=== PATIENT | female | born 1970 | race Caucasian/White ===

== ENCOUNTER 2017-06-20 10:46 | Inpatient (IN) | payer OTHER ==
[~2017-06-20] VITALS: Ht 175.3 cm; Wt 121.0 kg
[2017-06-20] VITALS (7 sets, daily range): BP systolic 164; BP diastolic 82; PULSE 74–94; TEMP 36.7; O2SAT 94–97; Ht 175.3 cm; Wt 121.0 kg
[~2017-06-20 10:46] MED LIST: ACET-1256 PO; ALBUAER2 INH; ATV/1 PO; BUSP15TA70 PO; FLUO20CA35 PO; FORM12CA2 INH; LPT10 PO; NCDT21 TD; NRV5 PO; OXGN; PRED5PAK3 PO; TIOTCAP INH; TOPI50TA16 PO; VST10 PO
[2017-06-20] MEDS ORDERED: ALBUT/IPRATROP 3MG/0.5MG NEB 3 ML VIAL INH STA ×2 (11:28→12:13)
[2017-06-20 11:48] LABS: BASO % 0.2 %; BASO ABS # 0.02 K/uL (0-0.2); COMPLETE YES; EOS % 0.6 %; HEMATOCRIT 49.9 % (37-47); IG% 2.1 %; LYMPH ABS # 4.48 K/uL (1.2-3.4); MEAN CELL VOLUME 87.7 fL (80-100); MEAN CORPUSCULAR HEMOGLOBIN 27.6 pg (25-34); MEAN CORPUSCULAR HGB CONC 31.5 g/dl (32-36); MONO % 8.8 %; NEUT % 54.3 %; PLATELET COUNT 283 K/uL (130-400); RED BLOOD COUNT 5.69 M/uL (4.2-5.4); WHITE BLOOD COUNT 13.16 K/uL (4.8-10.8)
[2017-06-20 11:57] LABS: POINT OF CARE TROPONIN I < 0.030 ng/ml (0-0.045)
[2017-06-20 11:59] LABS: INR 0.9 (0.9-1.1); PARTIAL THROMBOPLASTIN RATIO 0.9; PROTHROMBIN TIME (PATIENT) 10.1 SECONDS (9.0-12.0)
--- NOTE | 2017-06-20 12:01 | DIAGNOSTIC IMAGING REPORT ---
CHEST ONE VIEW PORTABLE HISTORY: Dyspnea COMPARISON: Chest 04/08/2015. FINDINGS: No pleural effusions. No pneumothorax. The heart is normal in size. No focal lung consolidations to suggest pneumonia. No evidence for pulmonary edema. Possible 6 mm nodular density within the left upper lobe. IMPRESSION: No acute process within the chest. Possible 6 mm nodular density within the left upper lobe. Follow-up nonemergent PA and lateral views of the chest are recommended for further evaluation to exclude overlapping soft tissues. Electronically signed by: Hipolito Robertson M.D. 06/20/2017 12:00 PM Dictated Date/Time: 06/20/2017 11:56 AM
[2017-06-20 12:05] LABS: BUN/CREATININE RATIO 19.1 (10-20); CALCIUM 8.7 mg/dl (8.5-10.1); CREATININE 0.91 mg/dl (0.60-1.20); MAGNESIUM 2.4 mg/dl (1.8-2.4); POTASSIUM 3.7 mmol/L (3.5-5.1)
[2017-06-20 12:15] LABS: ALB/GLOB RATIO 0.9 (0.9-2); CKMB/CK RATIO 2.4 (0-3.0); THYROID STIMULATING HORMONE 0.864 uIu/ml (0.300-4.500)
[2017-06-20] MEDS ORDERED: METHYLPREDNISOLONE 125 MG VIAL IV STA (12:37)
[2017-06-20] MEDS ORDERED: MOME100A INH (12:47)
[2017-06-20] MEDS ORDERED: BSP/10 PO (12:47)
[2017-06-20] MEDS ORDERED: ATOR10TA88 PO (12:47)
[2017-06-20] MEDS ORDERED: BENZ100C84 PO (12:47)
[2017-06-20] MEDS ORDERED: AZIT250T PO (12:47)
[2017-06-20] MEDS ORDERED: FLUO20CA34 PO (12:47)
[2017-06-20] MEDS ORDERED: ENAL1TAB31 PO (12:47)
[2017-06-20] MEDS ORDERED: PRED10TA PO (12:47)
[2017-06-20] MEDS ORDERED: PRVIN525X INH (12:47)
[2017-06-20] MEDS ORDERED: SPRIN/30 INH (12:47)
[2017-06-20] MEDS ORDERED: TOPI50TA16 PO (12:47)
[2017-06-20] MEDS ORDERED: LORA-741 PO (12:47)
[2017-06-20] MEDS ORDERED: CLR10 PO (12:47)
[2017-06-20] MEDS ORDERED: AMLO-110 PO (12:47)
[2017-06-20] MEDS ORDERED: CLON1TAB3 PO (12:47)
[2017-06-20] MEDS ORDERED: GUAI1TAB75 PO (12:47)
[2017-06-20] MEDS ORDERED: IPRASOL4 INH (12:47)
[2017-06-20] MEDS ORDERED: ALBU18002 INH (12:47)
[2017-06-20] MEDS ORDERED: LEVO1TAB34 PO (12:47)
--- NOTE | 2017-06-20 13:05 | EMERGENCY ROOM VISIT NOTE ---
History First contact with patient: 10:57 Chief Complaint: OTHER COMPLAINT Stated Complaint: COPD History of Present Illness The patient is a 47 year old female who presents to the Emergency Room via private vehicle with complaints of "COPD". The patient states that she had a COPD flare, and was recently hospitalized at [facility]. She states that she was hospitalized there between this past until yesterday. She states that she was discharged home and was feeling better. She was sent home with antibiotic, but has not yet begun this. She states that she worsened today, in regard to her shortness of breath as well as her chest pain. She states that this is the worst she is felt from her COPD. She currently still smokes. She has not had any medications for the COPD yet today. She denies any history of blood clots. This episode of symptoms began last Monday. They began with symptoms of upper respiratory tract infection similar to the common cold, of which she normally calls her PA Bang who normally prescribes a steroid and antibiotic, however she neglected to do so this time and notes that she had worsening of her symptoms. Review of Systems A complete 10-point Review of Systems was discussed with the patient, with pertinent positives and negatives listed in the History of Present Illness. All remaining Review of Systems questions can be considered negative unless otherwise specified. Past Medical/Surgical History Medical Problems: (1) Acute respiratory failure with hypoxia and hypercapnia Social History Smoking Status: Current Every Day Smoker Drug Use: none Marital Status: single, Occupation Status: other Current/Historical Medications Scheduled Amlodipine (Norvasc), 5 MG PO DAILY Atorvastatin (Lipitor), 10 MG PO DAILY Azithromycin (Zithromax), 500 MG PO DAILY Buspirone HCl (Buspirone HCl), 10 MG PO BID Enalapril Maleate (Vasotec), 20 MG PO DAILY Fluoxetine Hcl (Prozac), 60 MG PO DAILY Guaifenesin La (Guaifenesin Er), 1,200 MG PO Q12H Levofloxacin (Levaquin), 500 MG PO DAILY Loratadine (Claritin), 10 MG PO DAILY Mometasone Furoate-Formoterol (Dulera 100/5 Mcg), 1 AER INH DAILY Prednisone (Prednisone), 10 MG PO UD Tiotropium [place] (Spiriva Handihaler), 1 CAP INH BID Topiramate (Topamax), 50 MG PO BID Scheduled PRN Albuterol Sulf (Albuterol Sulfate), 1 VIAL INH Q4 PRN for SOB/Wheezing Albuterol Sulfate (Proair Respiclick), 1 PUFF INH DAILY PRN for Shortness of Breath Benzonatate (Tessalon Perles), 100 MG PO Q6 PRN for Cough Clonazepam (Klonopin), 1 MG PO BID PRN for Anxiety/Agitation Ipratropium-Albuterol (Duoneb), 1 TREATMENT INH Q4H PRN for SOB/Wheezing Lorazepam (Ativan), 0.5 MG PO DAILY PRN for Anxiety Physical Exam Vital Signs Date Time Temp Pulse Resp B/P (MAP) Pulse Ox O2 Delivery O2 Flow Rate FiO2 06/20/17 15:56 74 97 06/20/17 15:56 97 32 125/63 93 CPAP 06/20/17 14:49 98 36 94 CPAP 06/20/17 14:26 107 46 158/82 94 BiPAP 06/20/17 13:54 118 06/20/17 12:47 94 20 97 Nasal Cannula 4.0 06/20/17 11:51 92 22 141/104 97 4.0 06/20/17 11:07 90 06/20/17 11:01 Nasal Cannula 4.0 06/20/17 10:48 36.4 97 20 142/91 95 Room Air Physical Exam VITAL SIGNS - Vital signs and nursing notes were reviewed. Stable. GENERAL -47-year-old female appearing her stated age who is in no acute distress. Communicates well with provider and answers questions appropriately. SKIN - Without rashes. No petechial rashes. HEAD - NC/AT. EYES - PERRL with EOMI bilaterally. Sclera anicteric. EARS - No deformities of external structures noted on gross examination bilaterally. NOSE - Midline and without cyanosis. No epistaxis or purulent drainage noted. MOUTH/OROPHARYNX - Without perioral cyanosis. Buccal mucosa pink and moist and without leukoplakia. There are white, non-scribble plaques noted on the posterior soft palate region. There are also a few on the tongue. NECK - Neck with FROM. Supple to palpation. No lymphadenopathy noted. No nuchal rigidity. LUNGS - Chest wall symmetric without accessory muscle use, intercostals retractions, or central cyanosis. Normal vesicular breath sounds CTA B/L. No wheezes, rales, or rhonchi appreciated. CARDIAC - RRR with S1/S2. No murmur, rubs, or gallops appreciated. EXTREMITIES - No clubbing or peripheral cyanosis. No pretibial edema present. She is neurovascularly intact in the extremity. +5/5 strength noted in UE/LE bilaterally. NEUROLOGIC - Cranial nerves II through XII grossly intact. Sensory intact to light touch throughout. Patellar reflexes +2/4. PSYCH - A&Ox3 and cooperates fully with examiner. Pt is very pleasant and interacts well with examiner. Medical Decision & Procedures ER Provider Diagnostic Interpretation: CHEST ONE VIEW PORTABLE HISTORY: Dyspnea COMPARISON: Chest 04/08/2015. FINDINGS: No pleural effusions. No pneumothorax. The heart is normal in size. No focal lung consolidations to suggest pneumonia. No evidence for pulmonary edema. Possible 6 mm nodular density within the left upper lobe. IMPRESSION: No acute process within the chest. Possible 6 mm nodular density within the left upper lobe. Follow-up nonemergent PA and lateral views of the chest are recommended for further evaluation to exclude overlapping soft tissues. Electronically signed by: Hipolito Robertson M.D. 06/20/2017 12:00 PM Dictated Date/Time: 06/20/2017 11:56 AM Laboratory Results 06/20/17 11:35 Red Blood Count 5.69, Mean Corpuscular Volume 87.7, Mean Corpuscular Hemoglobin 27.6, Mean Corpuscular Hemoglobin Concent 31.5, Mean Platelet Volume 9.0, Neutrophils (%) (Auto) 54.3, Lymphocytes (%) (Auto) 34.0, Monocytes (%) (Auto) 8.8, Eosinophils (%) (Auto) 0.6, Basophils (%) (Auto) 0.2, Neutrophils # (Auto) 7.15, Lymphocytes # (Auto) 4.48, Monocytes # (Auto) 1.16, Eosinophils # (Auto) 0.08, Basophils # (Auto) 0.02 06/20/17 11:35 Test 06/20/17 11:35 06/20/17 11:39 06/20/17 15:09 White Blood Count 13.16 K/uL (4.8-10.8) Red Blood Count 5.69 M/uL (4.2-5.4) Hemoglobin 15.7 g/dL (12.0-16.0) Hematocrit 49.9 % (37-47) Mean Corpuscular Volume 87.7 fL (80-100) Mean Corpuscular Hemoglobin 27.6 pg (25-34) Mean Corpuscular Hemoglobin Concent 31.5 g/dl (32-36) Platelet Count 283 K/uL (130-400) Mean Platelet Volume 9.0 fL (7.4-10.4) Neutrophils (%) (Auto) 54.3 % Lymphocytes (%) (Auto) 34.0 % Monocytes (%) (Auto) 8.8 % Eosinophils (%) (Auto) 0.6 % Basophils (%) (Auto) 0.2 % Neutrophils # (Auto) 7.15 K/uL (1.4-6.5) Lymphocytes # (Auto) 4.48 K/uL (1.2-3.4) Monocytes # (Auto) 1.16 K/uL (0.11-0.59) Eosinophils # (Auto) 0.08 K/uL (0-0.5) Basophils # (Auto) 0.02 K/uL (0-0.2) RDW Standard Deviation 43.4 fL (36.4-46.3) RDW Coefficient of Variation 13.5 % (11.5-14.5) Immature Granulocyte % (Auto) 2.1 % Immature Granulocyte # (Auto) 0.27 K/uL (0.00-0.02) Prothrombin Time 10.1 SECONDS (9.0-12.0) Prothromb Time International Ratio 0.9 (0.9-1.1) Activated Partial Thromboplast Time 24.3 SECONDS (21.0-31.0) Partial Thromboplastin Ratio 0.9 Anion Gap 1.0 mmol/L (3-11) Est Creatinine Clear Calc Drug Dose 108.5 ml/min Estimated GFR () 87.7 Estimated GFR (Non- 75.7 BUN/Creatinine Ratio 19.1 (10-20) Calcium Level 8.7 mg/dl (8.5-10.1) Magnesium Level 2.4 mg/dl (1.8-2.4) Total Bilirubin 0.2 mg/dl (0.2-1) Aspartate Amino Transf (AST/SGOT) 15 U/L (15-37) Alanine Aminotransferase (ALT/SGPT) 26 U/L (12-78) Alkaline Phosphatase 84 U/L (45-117) Total Creatine Kinase 59 U/L (26-192) Creatine Kinase MB 1.4 ng/ml (0.5-3.6) Creatine Kinase MB Ratio 2.4 (0-3.0) Total Protein 6.6 gm/dl (6.4-8.2) Albumin 3.2 gm/dl (3.4-5.0) Globulin 3.4 gm/dl (2.5-4.0) Albumin/Globulin Ratio 0.9 (0.9-2) Thyroid Stimulating Hormone (TSH) 0.864 uIu/ml (0.300-4.500) Bedside D-Dimer 432 ng/mlFEU (0-450) Bedside Troponin I < 0.030 ng/ml (0-0.045) Arterial Blood pH 7.33 (7.35-7.45) Arterial Blood Partial Pressure CO2 70 mmHg (35-46) Arterial Blood Partial Pressure O2 76 mm/Hg (80-95) Arterial Blood HCO3 36 mmol/L (19-24) Arterial Blood Oxygen Saturation 94.2 % (90-95) Arterial Blood Base Excess 7.1 mEq/L (-9-1.8) Arterial Blood Gas Delivery 40% Ronnie Test POS (POS) Medications Administered Medications (Trade) Dose Ordered Sig/Alexis Route Start Time Stop Time Status Last Admin Dose Admin Albuterol/ Ipratropium (Duoneb) 3 ml NOW STAT INH 06/20/17 11:28 06/20/17 11:30 DC 06/20/17 11:35 3 ML Albuterol/ Ipratropium (Duoneb) 12 ml ONE STAT INH 06/20/17 12:13 06/20/17 12:14 DC 06/20/17 12:13 12 ML Methylprednisolone Sodium Succinate (Solu-Medrol IV) 125 mg NOW STAT IV 06/20/17 12:37 06/20/17 12:39 DC 06/20/17 13:09 125 MG Lorazepam (Ativan Inj) 0.5 mg NOW STAT IV 06/20/17 14:58 06/20/17 14:59 DC 06/20/17 15:23 0.5 MG Medical Decision Patient was seen and evaluated as above. After obtaining a thorough history and physical examination IV access is initiated, and the above workup was performed. Patient presents to us today status post recent admission at [facility]. She notes worsening of her symptoms to include shortness of breath and chest pain. Her bedside EKG reveals normal sinus rhythm. This is compared to previous and no significant change was found. She was given a 15 minute DuoNeb, without relief of her symptoms. She was given 1 hour-long DuoNeb and was reevaluated slightly better and then Solu-Medrol was ordered. She was reevaluated and was still sitting upright in bed hunched over, showing slight difficulty in breathing as well as not speaking in full sentences secondary to taking deep breaths. CBC revealed slight leukocytosis at 13.16, red blood cell at 5.69. No significant anemia noted. Coags normal, with d- dimer at 432. I CMP reveals carbon dioxide 38, and anion gap low at 1. All other lab tests are essentially unremarkable. Troponin negative. Chest x-ray reveals a questionable nodule, which was discussed with the patient. She is to follow-up. There are also white plaques in the back of the mouth which she is to follow up for. I Do not believe that intubation is required at this time, but will try BiPAP. This was not tolerated well, and was switched to CPAP. ABG was obtained. She was given 0.5 of Ativan, and was found to be resting comfortably. Admission team was contacted, and agreed to further manage the patient. Please refer to further documentation regarding her stay. In evaluation treatment this patient the following differential diagnoses were entertained: OH, PE, acute respiratory failure, COPD exacerbation, pneumonia, among others. Impression Primary Impression: COPD exacerbation Departure Information Dispostion Admitted as an inpatient Condition POOR Referrals Rossy Galeana PA-C (PCP) Patient Instructions My [facility]
[2017-06-20] MEDS ORDERED: LORAZEPAM 2 MG/ML 1 ML VIAL IV STA (14:58)
[2017-06-20 15:19] LABS: ARTERIAL BLD GAS O2 SATURATION 94.2 % (90-95); ARTERIAL BLOOD GAS BASE EXCESS 7.1 mEq/L (-9-1.8); ARTERIAL BLOOD GAS HCO3 36 mmol/L (19-24); ARTERIAL BLOOD GAS PO2 76 mm/Hg (80-95); ARTERIAL BLOOD GAS pH 7.33 (7.35-7.45)
[2017-06-20 15:23] LABS: ALLEN TEST POS (POS); O2 ADMINISTRATION 40%
[2017-06-20] MEDS ORDERED: SODIUM CHLORIDE 0.9% 1000ML 1,000 ML IV ONE (16:04)
[2017-06-20] MEDS ORDERED: CLONAZEPAM 1 MG TAB PO PRN (16:15)
[2017-06-20] MEDS ORDERED: METHYLPREDNISOLONE IV 60 MG in SYRINGE 0 ML IV SCH (16:15)
[2017-06-20] MEDS ORDERED: ONDANSETRON INJ 2 MG/ML 2 ML VIAL IV PRN (16:15)
[2017-06-20] MEDS ORDERED: BENZONATATE 100MG CAP PO PRN (16:15)
[2017-06-20] MEDS ORDERED: PIPERACILLIN/TAZOBACTAM 3.375 GM/100ML D5W IV STA (16:23)
[2017-06-20] MEDS ORDERED: VANCOMYCIN INJ 1,000 MG in SODIUM CHLORIDE 0.9% 250ML 250 ML IV STA (16:23)
[2017-06-20] MEDS ORDERED: PIPERACILL/TAZOBAC IV 3.375 GM in DEXTROSE 5% 100ML 100 ML IV ONE (17:00)
[2017-06-20 18:18] LABS: ALLEN TEST POS (POS); ARTERIAL BLD GAS O2 SATURATION 95.7 % (90-95); ARTERIAL BLOOD GAS BASE EXCESS 5.1 mEq/L (-9-1.8); ARTERIAL BLOOD GAS HCO3 34 mmol/L (19-24); ARTERIAL BLOOD GAS PO2 85 mm/Hg (80-95); ARTERIAL BLOOD GAS pH 7.31 (7.35-7.45); O2 ADMINISTRATION 40%
--- NOTE | 2017-06-20 18:27 | Family Medicine Progress Note ---
Progress Note Date of Service Jun 20, 2017. Subjective Pt evaluation today including: conversation w/ patient, physical exam, chart review, lab review 47 yo female with PMHx significant for COPD presents to the ED with acute SOB. -Interviewed patient while on Bipap. Pt says family -Pt was recently hospitalized for acute exacerbation of COPD last to Monday at [facility] -Pt said that her last episode was triggered by a URI. Last week she says she experienced fevers and cold like symptoms -This morning she reports acute SOB similar to episodes in the past. -Pt reports a 7 year history of COPD. She states that her and her PCP have tried to preempt attacks by taking prophylaxis abx when when begins to experience cold symptoms. -Pt has smoked 2 PPD for 34 years. Pt still smokes. -She also reports a constant chest pain, tender to touch, worse with coughing, nothing seems to make it better and its the same with activity and rest. Pt gets some relief with Tylenol. -Pt denies abdominal pain, N/V/D. Patient denies problems with urinations. Constitutional: No fever, No chills Respiratory: + cough, + sputum, + shortness of breath, + dyspnea on exertion Cardiovascular: + chest pain Abdomen: No pain, No nausea, No vomiting, No diarrhea Female : No dysuria, No urinary frequency, No hematuria Medications Reported Home Medications Medications Dose Route/Sig Max Daily Dose Days Date Category Dose Instructions Spiriva Handihaler (Tiotropium Ruby) 30 Puff/540 Mcg Aerp 1 Cap INH BID 06/20/17 Reported Dulera 100/5 Mcg (Mometasone Furoate-Formoterol) 1 Aer Aer 1 Aer INH DAILY 06/20/17 Reported Ativan (Lorazepam) 0.5 Mg Tab 0.5 Mg PO DAILY PRN 06/20/17 Reported Levaquin (Levofloxacin) 500 Mg Tab 500 Mg PO DAILY 06/20/17 Reported Duoneb (Ipratropium-Albuterol) 3 Ml Nebu 1 Treatment INH Q4H PRN 06/20/17 Reported Proair Respiclick (Albuterol Sulfate) 108 Mcg/Act Aer 1 Puff INH DAILY PRN 06/20/17 Reported Prednisone 10 Mg Tab 10 Mg PO UD 06/20/17 Reported TAKE 4 TABS DAILY FOR 3 DAYS, THEN 3 TABS FOR 3 DAYS, THEN 2 TABS FOR 3 DAYS, THEN 1 TAB FOR 3 DAYS. Tessalon Perles (Benzonatate) 100 Mg Cap 100 Mg PO Q6 PRN 06/20/17 Reported Zithromax (Azithromycin) 250 Mg Tab 500 Mg PO DAILY 06/20/17 Reported TWO 250 MG TABLETS Lipitor (Atorvastatin Calcium) 10 Mg Tab 10 Mg PO DAILY 06/20/17 Reported Norvasc (Amlodipine Besylate) 5 Mg Tab 5 Mg PO DAILY 06/20/17 Reported Albuterol Sulfate (Albuterol Sulf) 2.5 Mg/0.5 Ml Nebu 1 Vial INH Q4 PRN 06/20/17 Reported Topamax (Topiramate) 50 Mg Tab 50 Mg PO BID 06/20/17 Reported Claritin (Loratadine) 10 Mg Tab 10 Mg PO DAILY 06/20/17 Reported Guaifenesin Er (Guaifenesin) 600 Mg Tabcr 1,200 Mg PO Q12H 06/20/17 Reported Prozac (Fluoxetine Hcl) 20 Mg Cap 60 Mg PO DAILY 06/20/17 Reported THREE 20 MG CAPSULES Vasotec (Enalapril Maleate) 20 Mg Tab 20 Mg PO DAILY 06/20/17 Reported Klonopin (Clonazepam) 1 Mg Tab 1 Mg PO BID PRN 06/20/17 Reported Buspirone HCl 10 Mg Tab 10 Mg PO BID 06/20/17 Reported Objective Vital Signs Last Vital Signs Documentation Date Time Temp Pulse Resp B/P (MAP) Pulse Ox O2 Delivery O2 Flow Rate FiO2 06/20/17 15:56 74 97 06/20/17 15:56 32 125/63 CPAP 06/20/17 12:47 4.0 06/20/17 10:48 36.4 Physical Exam General Appearance: + moderate distress, + obese Eyes: normal inspection, sclerae normal Neck: no adenopathy Respiratory/Chest: + respiratory distress, + accessory muscle use Cardiovascular: regular rate, rhythm, no edema, no gallop, no murmur Abdomen: normal bowel sounds, non tender, soft, no organomegaly Extremities: non-tender, normal inspection, no pedal edema Neurologic/Psychiatric: alert, oriented x 3 Skin: normal color, warm/dry Laboratory Results 06/20/17 11:35 Red Blood Count 5.69, Mean Corpuscular Volume 87.7, Mean Corpuscular Hemoglobin 27.6, Mean Corpuscular Hemoglobin Concent 31.5, Mean Platelet Volume 9.0, Neutrophils (%) (Auto) 54.3, Lymphocytes (%) (Auto) 34.0, Monocytes (%) (Auto) 8.8, Eosinophils (%) (Auto) 0.6, Basophils (%) (Auto) 0.2, Neutrophils # (Auto) 7.15, Lymphocytes # (Auto) 4.48, Monocytes # (Auto) 1.16, Eosinophils # (Auto) 0.08, Basophils # (Auto) 0.02 06/20/17 11:35 Test 06/20/17 11:35 06/20/17 11:39 06/20/17 15:09 White Blood Count 13.16 K/uL (4.8-10.8) Red Blood Count 5.69 M/uL (4.2-5.4) Hemoglobin 15.7 g/dL (12.0-16.0) Hematocrit 49.9 % (37-47) Mean Corpuscular Volume 87.7 fL (80-100) Mean Corpuscular Hemoglobin 27.6 pg (25-34) Mean Corpuscular Hemoglobin Concent 31.5 g/dl (32-36) Platelet Count 283 K/uL (130-400) Mean Platelet Volume 9.0 fL (7.4-10.4) Neutrophils (%) (Auto) 54.3 % Lymphocytes (%) (Auto) 34.0 % Monocytes (%) (Auto) 8.8 % Eosinophils (%) (Auto) 0.6 % Basophils (%) (Auto) 0.2 % Neutrophils # (Auto) 7.15 K/uL (1.4-6.5) Lymphocytes # (Auto) 4.48 K/uL (1.2-3.4) Monocytes # (Auto) 1.16 K/uL (0.11-0.59) Eosinophils # (Auto) 0.08 K/uL (0-0.5) Basophils # (Auto) 0.02 K/uL (0-0.2) RDW Standard Deviation 43.4 fL (36.4-46.3) RDW Coefficient of Variation 13.5 % (11.5-14.5) Immature Granulocyte % (Auto) 2.1 % Immature Granulocyte # (Auto) 0.27 K/uL (0.00-0.02) Prothrombin Time 10.1 SECONDS (9.0-12.0) Prothromb Time International Ratio 0.9 (0.9-1.1) Activated Partial Thromboplast Time 24.3 SECONDS (21.0-31.0) Partial Thromboplastin Ratio 0.9 Anion Gap 1.0 mmol/L (3-11) Est Creatinine Clear Calc Drug Dose 108.5 ml/min Estimated GFR () 87.7 Estimated GFR (Non- 75.7 BUN/Creatinine Ratio 19.1 (10-20) Calcium Level 8.7 mg/dl (8.5-10.1) Magnesium Level 2.4 mg/dl (1.8-2.4) Total Bilirubin 0.2 mg/dl (0.2-1) Aspartate Amino Transf (AST/SGOT) 15 U/L (15-37) Alanine Aminotransferase (ALT/SGPT) 26 U/L (12-78) Alkaline Phosphatase 84 U/L (45-117) Total Creatine Kinase 59 U/L (26-192) Creatine Kinase MB 1.4 ng/ml (0.5-3.6) Creatine Kinase MB Ratio 2.4 (0-3.0) Total Protein 6.6 gm/dl (6.4-8.2) Albumin 3.2 gm/dl (3.4-5.0) Globulin 3.4 gm/dl (2.5-4.0) Albumin/Globulin Ratio 0.9 (0.9-2) Thyroid Stimulating Hormone (TSH) 0.864 uIu/ml (0.300-4.500) Bedside D-Dimer 432 ng/mlFEU (0-450) Bedside Troponin I < 0.030 ng/ml (0-0.045) Arterial Blood pH 7.33 (7.35-7.45) Arterial Blood Partial Pressure CO2 70 mmHg (35-46) Arterial Blood Partial Pressure O2 76 mm/Hg (80-95) Arterial Blood HCO3 36 mmol/L (19-24) Arterial Blood Oxygen Saturation 94.2 % (90-95) Arterial Blood Base Excess 7.1 mEq/L (-9-1.8) Arterial Blood Gas Delivery 40% Ronnie Test POS (POS) Assessment and Plan Infected Acute exacerbation of COPD -Methylprednisolone 125mg IV in the Ed -Ordered Methylprednisolone 60 mg q6hrs. -As patient condition improves and can tolerate PO meds, switch to Prendisone 40 -60mg and taper. -Recent history of URI and acute exacerbation. Qualifies for SIRS criteria: tachycardia, tachypnea and WBC>12 -Ordered lactic acid -Ordered Vanc/Zosyn -Duonebs Q6 hrs Q2 hr PRN Hypoxic/Hypercapnic Respiratory failure -Bipap fiO2 40% Respiratory Acidosis -Pt on Bipap -BMP tomorrow am -Consider ABG's tomorrow DVT ppx -Levonox 40mg -SCD -TEDS Resident Physician Supervision Note: I was present with Drs. Willingham and Cisco during the deutsch portions of history and exam. I discussed the case with the resident and agree with the findings and plan as documented in the note. Any exceptions or clarifications are listed here: 47 y/o female discharged from [facility] yesterday after admission for COPD exacerbation. The patient states that she quickly worsened the evening of her discharge. She called her PCP today who referred her to our facility for admission. BiPAP was started in the ED and the appears much more comfortable now compared to notes of her initial presentation. Upon examination, she is resting comfortably. She has good air movement in all smith on BiPAP with minimal end exp wheeze. Agree with continued BiPAP this evening, along with IV solumedrol, although this may be able to be tapered quickly. Pulmonary service is familiar with her as an outpatient, and we've ask them to see her in consultation. Documented By: Pasquale Addison
[2017-06-20] MEDS ORDERED: PIPERACILL/TAZOBAC CONSULT ACTIVE PRN (18:45)
[2017-06-20] MEDS ORDERED: PIPERACILL/TAZOBAC IV 4.5 GM in DEXTROSE 5% 100ML IV ONE (19:00)
[2017-06-20] MEDS: ALBUT/IPRATROP 3MG/0.5MG NEB 3 ML VIAL INH SCH (19:17)
[2017-06-20] MEDS: ENOXAPARIN 40 MG/0.4 ML SYR SC SCH (20:25)
[2017-06-20] MEDS: GUAIFENESIN 600 MG TABCR PO SCH (20:25)
[2017-06-20] MEDS: TOPIRAMATE 25 MG TAB PO SCH (20:26)
[2017-06-20] MEDS ORDERED: PIPERACILL/TAZOBAC IV 3.375 GM in DEXTROSE 5% 100ML 100 ML IV SCH (22:00)
[2017-06-20] MEDS ORDERED: ACETAMINOPHEN 325 MG TAB PO PRN (23:30)
[2017-06-20] MEDS: PIPERACILL/TAZOBAC IV 4.5 GM in DEXTROSE 5% 100ML IV SCH (23:42)
[2017-06-20] MEDS: METHYLPREDNISOLONE IV 60 MG in SYRINGE 0 ML IV SCH (23:42)
[2017-06-21] VITALS (13 sets, daily range): BP systolic 127–174; BP diastolic 68–92; PULSE 65–81; TEMP 36.4–36.9; O2SAT 94–97
[2017-06-21] MEDS: NSS + 20MEQ KCL 1000ML 1,000 ML IV SCH ×4 (00:27→20:15)
[2017-06-21 06:01] LABS: BASO % 0.1 %; BASO ABS # 0.01 K/uL (0-0.2); COMPLETE YES; HEMATOCRIT 42.7 % (37-47); IG% 3.4 %; LYMPH % 10.5 %; LYMPH ABS # 1.24 K/uL (1.2-3.4); MEAN CELL VOLUME 86.1 fL (80-100); MEAN CORPUSCULAR HEMOGLOBIN 28.2 pg (25-34); MEAN CORPUSCULAR HGB CONC 32.8 g/dl (32-36); MEAN PLATELET VOLUME 9.3 fL (7.4-10.4); MONO % 2.3 %; NEUT % 83.7 %; PLATELET COUNT 254 K/uL (130-400); RED BLOOD COUNT 4.96 M/uL (4.2-5.4); WHITE BLOOD COUNT 11.84 K/uL (4.8-10.8)
[2017-06-21 06:54] LABS: ALB/GLOB RATIO 0.8 (0.9-2); BUN/CREATININE RATIO 19.9 (10-20); CREATININE 0.82 mg/dl (0.60-1.20); POTASSIUM 4.8 mmol/L (3.5-5.1)
[2017-06-21] MEDS: ALBUT/IPRATROP 3MG/0.5MG NEB 3 ML VIAL INH SCH ×4 (07:38→19:16)
--- NOTE | 2017-06-21 08:56 | Family Medicine Progress Note ---
Progress Note Date of Service Jun 21, 2017. Subjective Pt evaluation today including: conversation w/ patient, physical exam, chart review, lab review 47 F -Today the patient is breathing much better off Bipap. -Pt does report chronic chest/back pain and tenderness worse with coughing. -Pt denies ab pain, N/V/D, fevers -Pt does report diarrhea last week during URI -She does have a cough that produces thick yellow-green sputum. -Pt reports hunger and dry mouth from bipap. Constitutional: No fever, No chills Respiratory: + cough, + sputum, + wheezing, + shortness of breath Cardiovascular: + chest pain, No edema Abdomen: No pain, No nausea, No vomiting, No diarrhea Medications Reported Home Medications Medications Dose Route/Sig Max Daily Dose Days Date Category Dose Instructions Spiriva Handihaler (Tiotropium [place]) 30 Puff/540 Mcg Aerp 1 Cap INH BID 06/20/17 Reported Dulera 100/5 Mcg (Mometasone Furoate-Formoterol) 1 Aer Aer 1 Aer INH DAILY 06/20/17 Reported Ativan (Lorazepam) 0.5 Mg Tab 0.5 Mg PO DAILY PRN 06/20/17 Reported Levaquin (Levofloxacin) 500 Mg Tab 500 Mg PO DAILY 06/20/17 Reported Duoneb (Ipratropium-Albuterol) 3 Ml Nebu 1 Treatment INH Q4H PRN 06/20/17 Reported Proair Respiclick (Albuterol Sulfate) 108 Mcg/Act Aer 1 Puff INH DAILY PRN 06/20/17 Reported Prednisone 10 Mg Tab 10 Mg PO UD 06/20/17 Reported TAKE 4 TABS DAILY FOR 3 DAYS, THEN 3 TABS FOR 3 DAYS, THEN 2 TABS FOR 3 DAYS, THEN 1 TAB FOR 3 DAYS. Tessalon Perles (Benzonatate) 100 Mg Cap 100 Mg PO Q6 PRN 06/20/17 Reported Zithromax (Azithromycin) 250 Mg Tab 500 Mg PO DAILY 06/20/17 Reported TWO 250 MG TABLETS Lipitor (Atorvastatin Calcium) 10 Mg Tab 10 Mg PO DAILY 06/20/17 Reported Norvasc (Amlodipine Besylate) 5 Mg Tab 5 Mg PO DAILY 06/20/17 Reported Albuterol Sulfate (Albuterol Sulf) 2.5 Mg/0.5 Ml Nebu 1 Vial INH Q4 PRN 06/20/17 Reported Topamax (Topiramate) 50 Mg Tab 50 Mg PO BID 06/20/17 Reported Claritin (Loratadine) 10 Mg Tab 10 Mg PO DAILY 06/20/17 Reported Guaifenesin Er (Guaifenesin) 600 Mg Tabcr 1,200 Mg PO Q12H 06/20/17 Reported Prozac (Fluoxetine Hcl) 20 Mg Cap 60 Mg PO DAILY 06/20/17 Reported THREE 20 MG CAPSULES Vasotec (Enalapril Maleate) 20 Mg Tab 20 Mg PO DAILY 06/20/17 Reported Klonopin (Clonazepam) 1 Mg Tab 1 Mg PO BID PRN 06/20/17 Reported Buspirone HCl 10 Mg Tab 10 Mg PO BID 06/20/17 Reported Objective Vital Signs Date Time Temp Pulse Resp B/P (MAP) Pulse Ox O2 Delivery O2 Flow Rate FiO2 06/21/17 07:38 75 22 95 Nasal Cannula 4.0 06/21/17 07:35 36.8 72 18 174/92 (119) 95 Room Air 06/21/17 04:00 95 Nasal Cannula 4.0 06/21/17 04:00 36.9 71 21 137/82 (100) 97 BiPAP 06/21/17 02:33 77 94 06/21/17 00:00 36.8 77 22 127/84 (98) 95 Nasal Cannula 6.0 06/20/17 23:59 95 BiPAP 40 06/20/17 20:00 95 BiPAP 06/20/17 19:30 81 94 06/20/17 19:19 81 26 94 Mask 10.0 06/20/17 18:56 36.7 94 24 164/82 95 Mask 9.0 06/20/17 18:16 96 06/20/17 17:49 95 36 139/83 95 CPAP 06/20/17 15:56 74 97 06/20/17 15:56 97 32 125/63 93 CPAP 06/20/17 14:49 98 36 94 CPAP 06/20/17 14:26 107 46 158/82 94 BiPAP 06/20/17 13:54 118 06/20/17 12:47 94 20 97 Nasal Cannula 4.0 06/20/17 11:51 92 22 141/104 97 4.0 06/20/17 11:07 90 06/20/17 11:01 Nasal Cannula 4.0 06/20/17 10:48 36.4 97 20 142/91 95 Room Air Physical Exam General Appearance: WD/WN, no apparent distress Neck: supple, no adenopathy Respiratory/Chest: + accessory muscle use, + wheezing, + pertinent finding ( Chest tender to palpation) Cardiovascular: regular rate, rhythm, no edema, no gallop Abdomen: normal bowel sounds, non tender Neurologic/Psychiatric: alert, normal mood/affect, oriented x 3 Skin: normal color, warm/dry, no rash Laboratory Results 06/21/17 05:10 Red Blood Count 4.96, Mean Corpuscular Volume 86.1, Mean Corpuscular Hemoglobin 28.2, Mean Corpuscular Hemoglobin Concent 32.8, Mean Platelet Volume 9.3, Neutrophils (%) (Auto) 83.7, Lymphocytes (%) (Auto) 10.5, Monocytes (%) (Auto) 2.3, Eosinophils (%) (Auto) 0.0, Basophils (%) (Auto) 0.1, Neutrophils # (Auto) 9.92, Lymphocytes # (Auto) 1.24, Monocytes # (Auto) 0.27, Eosinophils # (Auto) 0.00, Basophils # (Auto) 0.01 06/21/17 05:10 Test 06/20/17 11:35 06/20/17 11:39 06/20/17 18:03 06/21/17 05:10 Prothrombin Time 10.1 SECONDS (9.0-12.0) Prothromb Time International Ratio 0.9 (0.9-1.1) Activated Partial Thromboplast Time 24.3 SECONDS (21.0-31.0) Partial Thromboplastin Ratio 0.9 Magnesium Level 2.4 mg/dl (1.8-2.4) Total Creatine Kinase 59 U/L (26-192) Creatine Kinase MB 1.4 ng/ml (0.5-3.6) Creatine Kinase MB Ratio 2.4 (0-3.0) Thyroid Stimulating Hormone (TSH) 0.864 uIu/ml (0.300-4.500) Bedside D-Dimer 432 ng/mlFEU (0-450) Bedside Troponin I < 0.030 ng/ml (0-0.045) Arterial Blood pH 7.31 (7.35-7.45) Arterial Blood Partial Pressure CO2 68 mmHg (35-46) Arterial Blood Partial Pressure O2 85 mm/Hg (80-95) Arterial Blood HCO3 34 mmol/L (19-24) Arterial Blood Oxygen Saturation 95.7 % (90-95) Arterial Blood Base Excess 5.1 mEq/L (-9-1.8) Arterial Blood Gas Delivery 40% Ronnie Test POS (POS) Lactic Acid Level 1.1 mmol/L (0.4-2.0) White Blood Count 11.84 K/uL (4.8-10.8) Red Blood Count 4.96 M/uL (4.2-5.4) Hemoglobin 14.0 g/dL (12.0-16.0) Hematocrit 42.7 % (37-47) Mean Corpuscular Volume 86.1 fL (80-100) Mean Corpuscular Hemoglobin 28.2 pg (25-34) Mean Corpuscular Hemoglobin Concent 32.8 g/dl (32-36) Platelet Count 254 K/uL (130-400) Mean Platelet Volume 9.3 fL (7.4-10.4) Neutrophils (%) (Auto) 83.7 % Lymphocytes (%) (Auto) 10.5 % Monocytes (%) (Auto) 2.3 % Eosinophils (%) (Auto) 0.0 % Basophils (%) (Auto) 0.1 % Neutrophils # (Auto) 9.92 K/uL (1.4-6.5) Lymphocytes # (Auto) 1.24 K/uL (1.2-3.4) Monocytes # (Auto) 0.27 K/uL (0.11-0.59) Eosinophils # (Auto) 0.00 K/uL (0-0.5) Basophils # (Auto) 0.01 K/uL (0-0.2) RDW Standard Deviation 42.4 fL (36.4-46.3) RDW Coefficient of Variation 13.4 % (11.5-14.5) Immature Granulocyte % (Auto) 3.4 % Immature Granulocyte # (Auto) 0.40 K/uL (0.00-0.02) Anion Gap 4.0 mmol/L (3-11) Est Creatinine Clear Calc Drug Dose 119.4 ml/min Estimated GFR () 99.5 Estimated GFR (Non- 85.8 BUN/Creatinine Ratio 19.9 (10-20) Calcium Level 8.0 mg/dl (8.5-10.1) Total Bilirubin 0.4 mg/dl (0.2-1) Aspartate Amino Transf (AST/SGOT) 23 U/L (15-37) Alanine Aminotransferase (ALT/SGPT) 32 U/L (12-78) Alkaline Phosphatase 80 U/L (45-117) Total Protein 5.9 gm/dl (6.4-8.2) Albumin 2.7 gm/dl (3.4-5.0) Globulin 3.2 gm/dl (2.5-4.0) Albumin/Globulin Ratio 0.8 (0.9-2) Chemistry Specimen Hemolysis Assessment and Plan Acute exacerbation of COPD -Methylprednisolone 125mg IV in the Ed -Ordered Methylprednisolone 60 mg IV q6hrs. -As patient condition improves and can tolerate PO meds, switch to Prendisone 40 -60mg and taper. -Continue Vanc/Zosyn -Duonebs Q6 hrs Q2 hr PRN Hypoxic/Hypercapnic Respiratory failure -Pt off Bipap Respiratory Acidosis -BMP tomorrow am DVT ppx -Levonox 40mg -SCD -TEDS Resident Physician Supervision Note: I interviewed and examined the patient. Discussed with Dr. Peck and agree with findings and plan as documented in the note. Any exceptions or clarifications are listed here: I examined the patient this morning, she appeared much more comfortable - she was off BiPAP on a nasal cannula and was able speak in full sentences without pausing. Upon examination, still with diminished air movement and mid to end expiratory wheezing in all smith. Overall, she looks to be improved but still not ready for transition to oral steroids. Emphasized the need to quit smoking Discussed with pulmonology. Documented By: Pasquale Addison
[2017-06-21] MEDS: NICOTINE 21 MG/24 HR TDSY TD SCH (09:21)
[2017-06-21] MEDS: PIPERACILL/TAZOBAC IV 4.5 GM in DEXTROSE 5% 100ML IV SCH ×2 (09:21→21:00)
[2017-06-21] MEDS: AMLODIPINE BESYLATE 5 MG TAB PO SCH (09:22)
[2017-06-21] MEDS: LORATADINE 10 MG TAB PO SCH (09:23)
[2017-06-21] MEDS: ATORVASTATIN 10 MG TAB PO SCH (09:23)
[2017-06-21] MEDS: TOPIRAMATE 25 MG TAB PO SCH ×2 (09:25→20:14)
[2017-06-21] MEDS: METHYLPREDNISOLONE IV 60 MG in SYRINGE 0 ML IV SCH ×3 (09:26→23:58)
[2017-06-21] MEDS: GUAIFENESIN 600 MG TABCR PO SCH ×2 (09:26→20:14)
[2017-06-21] MEDS: FLUOXETINE HCL 20 MG CAP PO SCH (09:27)
--- NOTE | 2017-06-21 11:29 | DIAGNOSTIC IMAGING REPORT ---
TWO VIEW CHEST CLINICAL HISTORY: COPD. Shortness of breath. FINDINGS: PA and lateral chest radiographs are compared to study dated 06/20/2017. The examination is degraded by large body habitus. The cardiomediastinal silhouette is unremarkable. Emphysematous change is observed and there is chronic interstitial thickening. No airspace consolidation or pleural effusion is identified. A prominent epicardial fat pad is noted at the left lung base. There is no pneumothorax. The bony thorax appears intact. IMPRESSION: Mild emphysema with no active disease in the chest. Electronically signed by: Jhoan Roberto M.D. 06/21/2017 11:28 AM Dictated Date/Time: 06/21/2017 11:27 AM
[2017-06-21] MEDS ORDERED: NURSING VERBAL MED ORDER ONE (15:30)
[2017-06-21] MEDS: MoRPHine SULFATE 4 MG/ML 1 ML CARP\\VIAL IV PRN ×3 (15:31→23:58)
--- NOTE | 2017-06-21 16:50 | Pulmonary Consultation ---
History General Date of Service: Jun 21, 2017. Stated Complaint: Acute Respiratory Failure With Hypoxia And Hyperca HPI The patient is a 47 year old female who presents to [facility] with complaints of Acute Respiratory Failure With Hypoxia And Hyperca. The patient's primary care provider is Rossy Galeana PA-C. Ms. Espinal is a 47-year-old female with COPD on 3 L home oxygen who presented on 06/20/2017 to [facility] for worsening dyspnea and shortness of breath. She states that she was recently discharged from [facility] yesterday for recently being admitted on 06/15/2017. However , upon arrival at home her symptoms of shortness of breath, dyspnea on exertion , and cough worsened. She felt as if she needed further medical treatment and presented to the ER. She was discharged home on an antibiotic, but presented here prior to filling them. She follows up with Ahmet Espinal/ Dr. Ibrahim who often give her prophylactic antibiotics and corticosteroids if her respiratory symptoms change, however she did not call on 06/13/2017 and her symptoms worsened. She describes yellowish productive sputum, wheezing and chest tightness. She has home oxygen but is often not compliant with it. She denies any fevers, chills, chest pain, night sweats or changes in weight. She denies any sick contacts. She is a current tobacco user and smokes approximately 2 packs per day. She did have an overnight oximetry done on 4 L nasal cannula and that should saturation below 88% for about 11 minutes. It was recommended that she continue 4 L nasal cannula at nighttime. From a respiratory standpoint she is currently taking due Utibron Neoinhaler 1 capsule twice a day, albuterol nebulizer every 4 hours as needed, benzoate 100 mg 1 capsule 3 times a day. Upon arrival to the ER, her vital signs were 36.4, pulse 97, respiratory rate of 20, blood pressure 142/91, and pulse ox 95% on 4 L nasal cannula Laboratory data was significant for leukocytosis of 13.16, hemoglobin of 15.7, platelets of 283. The comprehensive metabolic panel was significant for elevation of CO2 of 38. Coags were within normal limits. D-dimer was 432 and troponins were negative. Patient had ABG done in the ER which was 7.33/70/76/36 /94.2% on 40% FiO2. Medications administered in the ER were albuterol/ ipratropium nebulizer, Solu-Medrol 125 mg IV 1 dose and lorazepam 0.5 mg. She was placed on BiPAP 12/5, FiO2 of 40%. Repeat blood gas was 7.31/68/85/34/95.7 % on 40%. Chest x-ray showed no acute cardiopulmonary process, a 6 mm nodular density was seen in the left upper lobe that wasn't present on previous studies. EKG done on admission showed normal sinus rhythm at 88 bpm. She was admitted for COPD exacerbation. She was on vancomycin and Zosyn, vancomycin has been discontinued. Her current medications include Zosyn 4.5 g every 8 hours, DuoNeb nebulizer every 4-6 hours, amlodipine 5 mg daily, atorvastatin 10 mg daily, Lovenox 40 mg daily, fluoxetine 60 mg daily, guaifenesin 1200 mg every 12 hours, loratadine 10 mg daily, Topirimate 50 mg BID, Tessalon perles 100 mg every 6 hours when necessary, clonazepam 1 mg twice a day when necessary, morphine 4 mg every 4 hours when necessary, and Tylenol 650 mg every 4 hours when necessary. She is also on nicotine patch. Today she feels that she is slightly improved. She does not like the BiPAP machine however tolerated overnight. She says that she still feels lethargic and tired. Her last admission to this hospital for COPD exacerbation was in April 2015. Sputum at that time grew Haemophilus influenza beta lactamase negative. She had bronchoscopy done at that time. Bacterial culture showed light normal ran , AFB stain and culture were showed no acid-fast bacilli, and fungal cultures showed Jess albicans. Bronchial washings was significant for marked acute inflammation, no malignant cells were seen. Historian: patient Onset: last week Severity: moderate Complaint Status: improved Review of Systems Constitutional: reports: malaise, weakness Eyes: reports: no symptoms ENT: reports: no symptoms, as stated in HPI Cardiovascular: reports: no symptoms Respiratory: reports: cough, orthopnea, shortness of breath, sputum production , CROSS, denies: cyanosis, hemoptysis Gastrointestinal: reports: as stated in HPI Genitourinary - Female: reports: as stated in HPI Musculoskeletal: reports: as stated in HPI Endocrine: no symptoms, as stated in HPI Hematologic / Lymphatic: as stated in HPI Allergic / Immunologic: as stated in HPI All Other Symptoms All Other Systems: Reviewed and Negative Past Medical History Past Medical History: COPD Nocturnal hypoxemia Hypertension Hyperlipidemia Anxiety/depression Fibromyalgia Tobacco use disorder Morbid obesity Past Surgical History: section Cholecystectomy Hernia repair Hysterectomy Tubal ligation Family History She is family history of breast cancer, diabetes, lung cancer. Social History She is a current tobacco user of smoking 2 packs per day since teenage years. She denies any alcohol or illicit drug use. She is . She denies any environmental exposures. Hx Tobacco Use In Past Year?: Yes Smoking Status: Current Every Day Smoker Alcohol: socially Drug Use: none Marital status: single, Housing status: lives with family Occupational Status: other Immunizations History of Influenza Vaccine: No History of Tetanus Vaccine?: No History of Pneumococcal: No History of Hepatitis B Vaccine: No History of MDRO History of MDRO: No Allergies Coded Allergies: No Known Allergies (Unverified , 07/03/13) Current Medications Reported Home Medications Medications Dose Route/Sig Max Daily Dose Days Date Category Dose Instructions Spiriva Handihaler (Tiotropium Wallace) 30 Puff/540 Mcg Aerp 1 Cap INH BID 06/20/17 Reported Dulera 100/5 Mcg (Mometasone Furoate-Formoterol) 1 Aer Aer 1 Aer INH DAILY 06/20/17 Reported Ativan (Lorazepam) 0.5 Mg Tab 0.5 Mg PO DAILY PRN 06/20/17 Reported Levaquin (Levofloxacin) 500 Mg Tab 500 Mg PO DAILY 06/20/17 Reported Duoneb (Ipratropium-Albuterol) 3 Ml Nebu 1 Treatment INH Q4H PRN 06/20/17 Reported Proair Respiclick (Albuterol Sulfate) 108 Mcg/Act Aer 1 Puff INH DAILY PRN 06/20/17 Reported Prednisone 10 Mg Tab 10 Mg PO UD 06/20/17 Reported TAKE 4 TABS DAILY FOR 3 DAYS, THEN 3 TABS FOR 3 DAYS, THEN 2 TABS FOR 3 DAYS, THEN 1 TAB FOR 3 DAYS. Tessalon Perles (Benzonatate) 100 Mg Cap 100 Mg PO Q6 PRN 06/20/17 Reported Zithromax (Azithromycin) 250 Mg Tab 500 Mg PO DAILY 06/20/17 Reported TWO 250 MG TABLETS Lipitor (Atorvastatin Calcium) 10 Mg Tab 10 Mg PO DAILY 06/20/17 Reported Norvasc (Amlodipine Besylate) 5 Mg Tab 5 Mg PO DAILY 06/20/17 Reported Albuterol Sulfate (Albuterol Sulf) 2.5 Mg/0.5 Ml Nebu 1 Vial INH Q4 PRN 06/20/17 Reported Topamax (Topiramate) 50 Mg Tab 50 Mg PO BID 06/20/17 Reported Claritin (Loratadine) 10 Mg Tab 10 Mg PO DAILY 06/20/17 Reported Guaifenesin Er (Guaifenesin) 600 Mg Tabcr 1,200 Mg PO Q12H 06/20/17 Reported Prozac (Fluoxetine Hcl) 20 Mg Cap 60 Mg PO DAILY 06/20/17 Reported THREE 20 MG CAPSULES Vasotec (Enalapril Maleate) 20 Mg Tab 20 Mg PO DAILY 06/20/17 Reported Klonopin (Clonazepam) 1 Mg Tab 1 Mg PO BID PRN 06/20/17 Reported Buspirone HCl 10 Mg Tab 10 Mg PO BID 06/20/17 Reported Physical Physical Exam Vital Signs: Date Time Temp Pulse Resp B/P (MAP) Pulse Ox O2 Delivery O2 Flow Rate FiO2 06/21/17 15:23 78 20 95 Nasal Cannula 2.0 06/21/17 12:06 36.5 81 24 159/92 (114) 95 Nasal Cannula 2.0 06/21/17 08:00 95 Nasal Cannula 4.0 06/21/17 07:38 75 22 95 Nasal Cannula 4.0 06/21/17 07:35 36.8 72 18 174/92 (119) 95 Room Air 06/21/17 04:00 95 Nasal Cannula 4.0 06/21/17 04:00 36.9 71 21 137/82 (100) 97 BiPAP 06/21/17 02:33 77 94 06/21/17 00:00 36.8 77 22 127/84 (98) 95 Nasal Cannula 6.0 06/20/17 23:59 95 BiPAP 40 06/20/17 20:00 95 BiPAP 06/20/17 19:30 81 94 06/20/17 19:19 81 26 94 Mask 10.0 06/20/17 18:56 36.7 94 24 164/82 95 Mask 9.0 06/20/17 18:16 96 06/20/17 17:49 95 36 139/83 95 CPAP 06/20/17 15:56 74 97 06/20/17 15:56 97 32 125/63 93 CPAP General Appearance: WD/WN, NO APPARENT DISTRESS, obese Head: NORMOCEPHALIC, ATRAUMATIC Eyes: PERRLA, NO DISCHARGE, EOMI, SCLERAE NORMAL ENT: NORMAL MOUTH EXAM Neck: NORMAL RANGE OF MOTION, NO TENDERNESS, TRACHEA MIDLINE, NO STRIDOR, SUPPLE Respiratory: other (diminished breath sounds bilaterally. No wheezing, no crackles or rhonchi appreciated.) Cardiovasular: REGULAR RATE/RHYTHM, NORMAL S1S2, NO M/G/R Abdomen: NON TENDER, NORMAL BOWEL SOUNDS, NO REBOUND (obese,) Genitourinary - Female: EXTERNAL GENITALIA NORMAL Back: NORMAL INSPECTION, NO MIDLINE TENDERNESS, NO CVA TENDERNESS Upper Extremities: NO EDEMA Lower Extremities: NO EDEMA Pulses: dorsalis pedis (R) (1+), dorsalis pedis (L) (1+) Neuro: ALERT, ORIENTED x 3, NORMAL MOTOR EXAM, NORMAL SENSATION, NORMAL SPEECH Reflexes: brachioradialis (R) (2+), brachioradialis (L) (2+) Psychiatric: NORMAL AFFECT, NO SUICIDAL IDEATION, CONTRACTS FOR SAFETY, flat affect Diagnostics Labs Results Past 24 Hours Test 06/20/17 18:03 06/21/17 05:10 Range/Units Arterial Blood pH 7.31 7.35-7.45 Arterial Blood Partial Pressure CO2 68 35-46 mmHg Arterial Blood Partial Pressure O2 85 80-95 mm/Hg Arterial Blood HCO3 34 19-24 mmol/L Arterial Blood Oxygen Saturation 95.7 90-95 % Arterial Blood Base Excess 5.1 -9-1.8 mEq/L Arterial Blood Gas Delivery 40% Ronnie Test POS POS Lactic Acid Level 1.1 0.4-2.0 mmol/L White Blood Count 11.84 4.8-10.8 K/uL Red Blood Count 4.96 4.2-5.4 M/uL Hemoglobin 14.0 12.0-16.0 g/dL Hematocrit 42.7 37-47 % Mean Corpuscular Volume 86.1 80-100 fL Mean Corpuscular Hemoglobin 28.2 25-34 pg Mean Corpuscular Hemoglobin Concent 32.8 32-36 g/dl Platelet Count 254 130-400 K/uL Mean Platelet Volume 9.3 7.4-10.4 fL Neutrophils (%) (Auto) 83.7 % Lymphocytes (%) (Auto) 10.5 % Monocytes (%) (Auto) 2.3 % Eosinophils (%) (Auto) 0.0 % Basophils (%) (Auto) 0.1 % Neutrophils # (Auto) 9.92 1.4-6.5 K/uL Lymphocytes # (Auto) 1.24 1.2-3.4 K/uL Monocytes # (Auto) 0.27 0.11-0.59 K/uL Eosinophils # (Auto) 0.00 0-0.5 K/uL Basophils # (Auto) 0.01 0-0.2 K/uL RDW Standard Deviation 42.4 36.4-46.3 fL RDW Coefficient of Variation 13.4 11.5-14.5 % Immature Granulocyte % (Auto) 3.4 % Immature Granulocyte # (Auto) 0.40 0.00-0.02 K/uL Sodium Level 138 136-145 mmol/L Potassium Level 4.8 3.5-5.1 mmol/L Chloride Level 100 98-107 mmol/L Carbon Dioxide Level 34 21-32 mmol/L Anion Gap 4.0 3-11 mmol/L Blood Urea Nitrogen 16 7-18 mg/dl Creatinine 0.82 0.60-1.20 mg/dl Est Creatinine Clear Calc Drug Dose 119.4 ml/min Estimated GFR () 99.5 Estimated GFR (Non- 85.8 BUN/Creatinine Ratio 19.9 10-20 Random Glucose 179 70-99 mg/dl Calcium Level 8.0 8.5-10.1 mg/dl Total Bilirubin 0.4 0.2-1 mg/dl Aspartate Amino Transf (AST/SGOT) 23 15-37 U/L Alanine Aminotransferase (ALT/SGPT) 32 12-78 U/L Alkaline Phosphatase 80 45-117 U/L Total Protein 5.9 6.4-8.2 gm/dl Albumin 2.7 3.4-5.0 gm/dl Globulin 3.2 2.5-4.0 gm/dl Albumin/Globulin Ratio 0.8 0.9-2 Chemistry Specimen Hemolysis Microbiology Results 06/21/17 MRSA DNA Surveillance Screen, Received Pending 06/21/17 Gram Stain, Sachi Batch Pending 06/21/17 Sputum Culture, Sachi Batch Pending Diagnostic Radiology Chest x-ray from 06/21/2017 FINDINGS: PA and lateral chest radiographs are compared to study dated 2016. The examination is degraded by large body habitus. The cardiomediastinal silhouette is unremarkable. Emphysematous change is observed and there is chronic interstitial thickening. No airspace consolidation or pleural effusion is identified. A prominent epicardial fat pad is noted at the left lung base. There is no pneumothorax. The bony thorax appears intact. IMPRESSION: Mild emphysema with no active disease in the chest. Chest x-ray from 06/20/2017 FINDINGS: No pleural effusions. No pneumothorax. The heart is normal in size. No focal lung consolidations to suggest pneumonia. No evidence for pulmonary edema. Possible 6 mm nodular density within the left upper lobe. IMPRESSION: No acute process within the chest. Possible 6 mm nodular density within the left upper lobe. Follow-up nonemergent PA and lateral views of the chest are recommended for further evaluation to exclude overlapping soft tissues. Impression Assessment and Plan Acute on chronic hypoxic and hypercapnic respiratory failure COPD exacerbation Tobacco use disorder Left upper lobe nodule Patient has acute on chronic hypoxic hypercapnic respiratory failure is most likely secondary to a COPD exacerbation. Her last admission to this hospital was 2014 however not sure whether she is been admitted to another hospital in the last 2 years. Prior to this episode, it does appear that she has been well controlled. I would agree with continued systemic corticosteroids IV. Continue with antibiotics to cover for pseudomonas and she has now had a recent admission to the hospital. Continue with bronchodilators every 4-6 hours and when necessary. Continue with BiPAP overnight and when resting. Maintain an SaO2 between 88-92% with supplemental oxygen. She does have a previous nocturnal oximetry that showed that she does desaturate so is on 4 L nasal cannula. Be careful not to over oxygenate as this may precipitate hypercapnia. Also be judicious with narcotics and benzodiazepines as this can decrease the respiratory drive. I also recommend flutter valve and chest PT. I spoke to patient at length about smoking cessation. Nicotine patch has been ordered. The left upper lobe solitary pulmonary nodule was identified on initial chest x- ray. Due to her long history of smoking and family history of malignancy i.e. lung cancer she is at increased risk. She should have interval follow-up with a CT scan as an outpatient. I appreciate the consult and will continue to follow with you.
[2017-06-21] MEDS: ENOXAPARIN 40 MG/0.4 ML SYR SC SCH (20:15)
[2017-06-22] VITALS (9 sets, daily range): BP systolic 146–157; BP diastolic 78–92; PULSE 62–85; TEMP 36.4–36.5; O2SAT 93–99
[2017-06-22] MEDS: MoRPHine SULFATE 4 MG/ML 1 ML CARP\\VIAL IV PRN ×2 (04:05→08:38)
[2017-06-22] MEDS: NSS + 20MEQ KCL 1000ML 1,000 ML IV SCH (04:22)
[2017-06-22] MEDS: PIPERACILL/TAZOBAC IV 4.5 GM in DEXTROSE 5% 100ML IV SCH (05:54)
[2017-06-22 06:03] LABS: BASO % 0.1 %; BASO ABS # 0.01 K/uL (0-0.2); COMPLETE YES; HEMATOCRIT 44.7 % (37-47); LYMPH ABS # 1.19 K/uL (1.2-3.4); MEAN CELL VOLUME 87.3 fL (80-100); MEAN CORPUSCULAR HEMOGLOBIN 27.7 pg (25-34); MEAN CORPUSCULAR HGB CONC 31.8 g/dl (32-36); MEAN PLATELET VOLUME 9.3 fL (7.4-10.4); MONO % 3.4 %; NEUT % 85.5 %; PLATELET COUNT 259 K/uL (130-400); RED BLOOD COUNT 5.12 M/uL (4.2-5.4); WHITE BLOOD COUNT 14.83 K/uL (4.8-10.8)
[2017-06-22 06:35] LABS: BUN/CREATININE RATIO 19.7 (10-20); CALCIUM 8.7 mg/dl (8.5-10.1); CREATININE 0.86 mg/dl (0.60-1.20); POTASSIUM 4.4 mmol/L (3.5-5.1)
[2017-06-22] MEDS: ALBUT/IPRATROP 3MG/0.5MG NEB 3 ML VIAL INH SCH ×3 (07:17→15:53)
[2017-06-22] MEDS: ATORVASTATIN 10 MG TAB PO SCH (08:39)
[2017-06-22] MEDS: AMLODIPINE BESYLATE 5 MG TAB PO SCH (08:39)
[2017-06-22] MEDS: GUAIFENESIN 600 MG TABCR PO SCH ×2 (08:39→20:19)
[2017-06-22] MEDS: METHYLPREDNISOLONE IV 60 MG in SYRINGE 0 ML IV SCH (08:39)
[2017-06-22] MEDS: LORATADINE 10 MG TAB PO SCH (08:40)
[2017-06-22] MEDS: FLUOXETINE HCL 20 MG CAP PO SCH (08:41)
[2017-06-22] MEDS: TOPIRAMATE 25 MG TAB PO SCH ×2 (08:42→20:21)
[2017-06-22] MEDS: NICOTINE 21 MG/24 HR TDSY TD SCH (08:43)
[2017-06-22] MEDS ORDERED: INSULIN GLARGINE SOLOSTAR 100 UNITS/ML 3 ML PEN SC ONE (09:32)
--- NOTE | 2017-06-22 09:32 | Pulmonology Progress Note ---
Pulmonary Progress Note Date of Service Jun 22, 2017. Attending Dr. Hickey Subjective Patient seen and examined this morning. She is feeling much better. Feels less dyspneic at rest. She still feels dyspneic on exertion. She has minimal cough and using flutter valve. Objective VS reviewed. She remains of 4L NC. Gen: AAOx3, sitting in tripod position. Speaking in full sentence. No respiratory distress CVS: S1, S2, RRR Lungs: diminished breath sound bilaterally Abd: obese, NT, ND, BS+ Ext: no edema, no clubbing, no cyanosis b/l Skin: multiple tattoos Labs, imaging and medications reviewed Sputum culture pending. Assessment & Plan Acute on chronic hypoxic and hypercapnic respiratory failure COPD exacerbation Tobacco use disorder Left upper lobe nodule Patient is clinically improving. She is still dyspneic on exertion, but states this is her baseline. C/w systemic corticosteroids IV. C/w 7 day course of antibioticss Continue with bronchodilators every 4-6 hours and when necessary. Continue with BiPAP overnight and when resting. Be careful not to over oxygenate as this may precipitate hypercapnia. c/w flutter valve and chest PT. C/w nicotine patch. Smoking cessation counseling given again this morning. She states she is ready to quit. The left upper lobe solitary pulmonary nodule was identified on initial chest x- ray. Due to her long history of smoking and family history of malignancy i.e. lung cancer she is at increased risk. She should have interval follow-up with a CT scan as an outpatient. She may also benefit from pulmonary rehabilitation program in the meantime. Discussed plan with Dr. Addison. Data Medications: Current Inpatient Medications Medications (Trade) Dose Ordered Sig/Alexis Route Start Time Stop Time Status Last Admin Dose Admin Enoxaparin Sodium (Lovenox Inj) 40 mg HS SC 06/20/17 21:00 07/20/17 20:59 06/21/17 20:15 40 MG Ondansetron HCl (Zofran Inj) 4 mg Q6H PRN IV 06/20/17 16:15 07/20/17 16:14 Amlodipine Besylate (Norvasc Tab) 5 mg DAILY PO 06/21/17 09:00 07/21/17 08:59 06/22/17 08:39 5 MG Atorvastatin Calcium (Lipitor Tab) 10 mg DAILY PO 06/21/17 09:00 07/21/17 08:59 06/22/17 08:39 10 MG Benzonatate (Tessalon Perles Cap) 100 mg Q6 PRN PO 06/20/17 16:15 07/20/17 16:14 Clonazepam (Klonopin Tab) 1 mg BID PRN PO 06/20/17 16:15 07/20/17 16:14 Fluoxetine HCl (Prozac Cap) 60 mg DAILY PO 06/21/17 09:00 07/21/17 08:59 06/22/17 08:41 60 MG Guaifenesin (Mucinex Contr Rel Tab) 1,200 mg Q12 PO 06/20/17 21:00 07/20/17 20:59 06/22/17 08:39 1,200 MG Loratadine (Claritin Tab) 10 mg DAILY PO 06/21/17 09:00 07/21/17 08:59 06/22/17 08:40 10 MG Topiramate (Topamax Tab) 50 mg BID PO 06/20/17 21:00 07/20/17 20:59 06/22/17 08:42 50 MG Albuterol/ Ipratropium (Duoneb) 3 ml QIDR INH 06/20/17 20:00 07/20/17 19:59 06/22/17 07:17 3 ML Methylprednisolone Sodium Succinate 60 mg/Syringe 0.96 ml @ 1.5 mls/min Q8H IV 06/21/17 00:15 07/20/17 16:14 06/22/17 08:39 1.5 MLS/MIN Piperacillin Sod/ Tazobactam Sod (Consult) 1 ea UD PRN N/A 06/20/17 18:45 07/20/17 18:44 Acetaminophen (Tylenol Tab) 650 mg Q4H PRN PO 06/20/17 23:30 07/20/17 23:29 Potassium Chloride/Sodium Chloride 1,000 ml @ 125 mls/hr Q8H IV 06/20/17 23:30 07/20/17 23:29 06/22/17 04:22 125 MLS/HR Morphine Sulfate (MoRPHine SULFATE INJ) 4 mg Q4H PRN IV 06/20/17 23:30 07/04/17 23:29 8/17/17 08:38 4 MG Nicotine (Nicoderm Cq 21MG Patch) 1 patch QAM TD 06/21/17 09:00 07/21/17 08:59 06/22/17 08:43 1 PATCH Miscellaneous (Remove Nicoderm Patch) 1 ea HS N/A 06/21/17 21:00 07/21/17 20:59 06/21/17 20:13 1 EA Piperacillin Sod/ Tazobactam Sod 4.5 gm/Dextrose 120 ml @ 30 mls/hr Q8H IV 06/21/17 22:00 06/28/17 21:59 06/22/17 05:54 30 MLS/HR Buspirone HCl (Buspar Tab) 10 mg BID PO 06/21/17 21:00 07/21/17 20:59 06/22/17 08:54 10 MG Vital Signs: Date Time Temp Pulse Resp B/P (MAP) Pulse Ox O2 Delivery O2 Flow Rate FiO2 06/22/17 07:51 36.4 62 19 146/90 (108) 99 Nasal Cannula 4.0 06/22/17 07:17 68 16 95 Nasal Cannula 4.0 06/22/17 04:00 Nasal Cannula 4.0 06/22/17 03:04 36.5 76 20 152/92 (112) 98 Nasal Cannula 4.0 06/21/17 23:59 Nasal Cannula 4.0 06/21/17 23:07 36.6 65 19 139/82 (101) 96 Nasal Cannula 4.0 06/21/17 20:00 Nasal Cannula 4.0 06/21/17 19:18 81 20 94 Nasal Cannula 4.0 06/21/17 18:53 36.4 75 18 131/68 (89) 95 Nasal Cannula 4.0 06/21/17 16:00 Nasal Cannula 4.0 06/21/17 15:47 36.4 74 20 133/85 (101) 94 Nasal Cannula 4.0 06/21/17 15:23 78 20 95 Nasal Cannula 2.0 06/21/17 12:06 36.5 81 24 159/92 (114) 95 Nasal Cannula 2.0 06/21/17 12:00 95 Nasal Cannula 4.0 Laboratory Results: Last 24 Hours Test 06/22/17 05:18 White Blood Count 14.83 K/uL Red Blood Count 5.12 M/uL Hemoglobin 14.2 g/dL Hematocrit 44.7 % Mean Corpuscular Volume 87.3 fL Mean Corpuscular Hemoglobin 27.7 pg Mean Corpuscular Hemoglobin Concent 31.8 g/dl Platelet Count 259 K/uL Mean Platelet Volume 9.3 fL Neutrophils (%) (Auto) 85.5 % Lymphocytes (%) (Auto) 8.0 % Monocytes (%) (Auto) 3.4 % Eosinophils (%) (Auto) 0.0 % Basophils (%) (Auto) 0.1 % Neutrophils # (Auto) 12.68 K/uL Lymphocytes # (Auto) 1.19 K/uL Monocytes # (Auto) 0.51 K/uL Eosinophils # (Auto) 0.00 K/uL Basophils # (Auto) 0.01 K/uL RDW Standard Deviation 42.3 fL RDW Coefficient of Variation 13.2 % Immature Granulocyte % (Auto) 3.0 % Immature Granulocyte # (Auto) 0.44 K/uL Sodium Level 138 mmol/L Potassium Level 4.4 mmol/L Chloride Level 103 mmol/L Carbon Dioxide Level 32 mmol/L Anion Gap 3.0 mmol/L Blood Urea Nitrogen 17 mg/dl Creatinine 0.86 mg/dl Est Creatinine Clear Calc Drug Dose 113.8 ml/min Estimated GFR () 93.9 Estimated GFR (Non- 81.0 BUN/Creatinine Ratio 19.7 Random Glucose 232 mg/dl Calcium Level 8.7 mg/dl
[2017-06-22] MEDS ORDERED: GLUCOSE 40% GEL 15 GM TUBE PO PRN (09:45)
[2017-06-22] MEDS ORDERED: GLUCOSE 10 TABS/TUBE PO PRN (09:45)
[2017-06-22] MEDS ORDERED: GLUCAGON FOR INJ 1 MG VIAL SQ PRN (09:45)
[2017-06-22] MEDS ORDERED: DEXTROSE 50% 50 ML SYR IV PRN (09:45)
[2017-06-22] MEDS ORDERED: AZITHROMYCIN 250 MG TAB PO ONE (10:15)
[2017-06-22] MEDS ORDERED: CEPHALEXIN MONOHYDRATE 500 MG CAP PO ONE (10:15)
[2017-06-22] MEDS: INSULIN ASPART 100 UNITS/ML 3 ML PEN SC SCH ×3 (12:27→20:30)
[2017-06-22] MEDS: ACETAMINOPHEN 325 MG TAB PO SCH ×3 (12:28→20:18)
[2017-06-22] MEDS: IBUPROFEN 600 MG TAB PO SCH ×2 (14:14→20:20)
--- NOTE | 2017-06-22 16:07 | Family Medicine Progress Note ---
Progress Note Date of Service Jun 22, 2017. Subjective Pt evaluation today including: conversation w/ patient, conversation w/ family , physical exam, chart review, lab review 47 yo female -Today pt continues to feel better. -Pt still has a cough. Pt says that she has chest and back pain with cough. -Pt denies fevers, trouble urinating. -Pt does reports diarrhea last night. Constitutional: No fever, No chills Cardiovascular: + chest pain (plueritic pain when coughing), No edema, No palpitations Abdomen: + diarrhea, No pain, No nausea, No vomiting, No constipation Female : No dysuria, No urinary frequency Medications Current Inpatient Medications Medications (Trade) Dose Ordered Sig/Alexis Route Start Time Stop Time Status Last Admin Dose Admin Enoxaparin Sodium (Lovenox Inj) 40 mg HS SC 06/20/17 21:00 07/20/17 20:59 06/21/17 20:15 40 MG Ondansetron HCl (Zofran Inj) 4 mg Q6H PRN IV 06/20/17 16:15 07/20/17 16:14 Amlodipine Besylate (Norvasc Tab) 5 mg DAILY PO 06/21/17 09:00 07/21/17 08:59 06/22/17 08:39 5 MG Atorvastatin Calcium (Lipitor Tab) 10 mg DAILY PO 06/21/17 09:00 07/21/17 08:59 06/22/17 08:39 10 MG Benzonatate (Tessalon Perles Cap) 100 mg Q6 PRN PO 06/20/17 16:15 07/20/17 16:14 Clonazepam (Klonopin Tab) 1 mg BID PRN PO 06/20/17 16:15 07/20/17 16:14 Fluoxetine HCl (Prozac Cap) 60 mg DAILY PO 06/21/17 09:00 07/21/17 08:59 06/22/17 08:41 60 MG Guaifenesin (Mucinex Contr Rel Tab) 1,200 mg Q12 PO 06/20/17 21:00 07/20/17 20:59 06/22/17 08:39 1,200 MG Loratadine (Claritin Tab) 10 mg DAILY PO 06/21/17 09:00 07/21/17 08:59 06/22/17 08:40 10 MG Topiramate (Topamax Tab) 50 mg BID PO 06/20/17 21:00 07/20/17 20:59 06/22/17 08:42 50 MG Albuterol/ Ipratropium (Duoneb) 3 ml QIDR INH 06/20/17 20:00 07/20/17 19:59 06/22/17 11:25 3 ML Acetaminophen (Tylenol Tab) 650 mg Q4H PRN PO 06/20/17 23:30 07/20/17 23:29 Nicotine (Nicoderm Cq 21MG Patch) 1 patch QAM TD 06/21/17 09:00 07/21/17 08:59 06/22/17 08:43 1 PATCH Miscellaneous (Remove Nicoderm Patch) 1 ea HS N/A 06/21/17 21:00 07/21/17 20:59 06/21/17 20:13 1 EA Buspirone HCl (Buspar Tab) 10 mg BID PO 06/21/17 21:00 07/21/17 20:59 06/22/17 08:54 10 MG Tramadol HCl (Ultram Tab) 50 mg Q4H PRN PO 06/22/17 09:30 07/22/17 09:29 Ibuprofen (Motrin Tab) 600 mg TID PO 06/22/17 14:00 07/22/17 13:59 06/22/17 14:14 600 MG Acetaminophen (Tylenol Tab) 650 mg Q4HWA PO 06/22/17 12:00 07/22/17 11:59 06/22/17 12:28 650 MG Insulin Glargine (Lantus Solostar Pen) 20 units Q12 SC 06/22/17 21:00 07/22/17 20:59 Insulin Aspart (novoLOG ASPART) SLIDING SCALE If C... ACHS SC 06/22/17 11:00 07/22/17 10:59 06/22/17 12:27 7 UNITS Glucose (Glucose 40% Gel) 15-30 GRAMS 15 GRAMS... UD PRN PO 06/22/17 09:45 07/22/17 09:44 Glucose (Glucose Chew Tab) 4-8 Tablets 4 Tabl... UD PRN PO 06/22/17 09:45 07/22/17 09:44 Dextrose (Dextrose 50% 50ML Syringe) 25-50ML OF 50% DW IV FOR... UD PRN IV 06/22/17 09:45 07/22/17 09:44 Glucagon (Glucagon Inj) 1 mg UD PRN SQ 06/22/17 09:45 07/22/17 09:44 Cephalexin Monohydrate (Keflex Cap) 500 mg BID PO 06/22/17 21:00 06/29/17 20:59 Azithromycin (Zithromax Tab) 500 mg QAM PO 06/23/17 09:00 06/30/17 08:59 Objective Vital Signs Date Time Temp Pulse Resp B/P (MAP) Pulse Ox O2 Delivery O2 Flow Rate FiO2 06/22/17 15:21 36.5 75 20 155/78 (103) 96 Nasal Cannula 4.0 06/22/17 12:00 Nasal Cannula 4.0 06/22/17 11:53 36.4 66 19 149/88 (108) 95 Nasal Cannula 4.0 06/22/17 11:25 85 16 95 Nasal Cannula 4.0 06/22/17 08:00 Nasal Cannula 4.0 06/22/17 07:51 36.4 62 19 146/90 (108) 99 Nasal Cannula 4.0 06/22/17 07:17 68 16 95 Nasal Cannula 4.0 06/22/17 04:00 Nasal Cannula 4.0 06/22/17 03:04 36.5 76 20 152/92 (112) 98 Nasal Cannula 4.0 06/21/17 23:59 Nasal Cannula 4.0 06/21/17 23:07 36.6 65 19 139/82 (101) 96 Nasal Cannula 4.0 06/21/17 20:00 Nasal Cannula 4.0 06/21/17 19:18 81 20 94 Nasal Cannula 4.0 06/21/17 18:53 36.4 75 18 131/68 (89) 95 Nasal Cannula 4.0 Physical Exam General Appearance: WD/WN, no apparent distress Neck: supple, no adenopathy Respiratory/Chest: chest non-tender, lungs clear, normal breath sounds, no respiratory distress, no accessory muscle use Cardiovascular: regular rate, rhythm, no edema Abdomen: normal bowel sounds, non tender, soft, no organomegaly Extremities: no pedal edema Neurologic/Psychiatric: alert, normal mood/affect, oriented x 3 Skin: normal color, warm/dry, no rash Laboratory Results 06/22/17 05:18 Red Blood Count 5.12, Mean Corpuscular Volume 87.3, Mean Corpuscular Hemoglobin 27.7, Mean Corpuscular Hemoglobin Concent 31.8, Mean Platelet Volume 9.3, Neutrophils (%) (Auto) 85.5, Lymphocytes (%) (Auto) 8.0, Monocytes (%) (Auto) 3.4, Eosinophils (%) (Auto) 0.0, Basophils (%) (Auto) 0.1, Neutrophils # (Auto) 12.68, Lymphocytes # (Auto) 1.19, Monocytes # (Auto) 0.51, Eosinophils # (Auto) 0.00, Basophils # (Auto) 0.01 06/22/17 05:18 Test 06/22/17 05:18 06/22/17 12:16 White Blood Count 14.83 K/uL (4.8-10.8) Red Blood Count 5.12 M/uL (4.2-5.4) Hemoglobin 14.2 g/dL (12.0-16.0) Hematocrit 44.7 % (37-47) Mean Corpuscular Volume 87.3 fL (80-100) Mean Corpuscular Hemoglobin 27.7 pg (25-34) Mean Corpuscular Hemoglobin Concent 31.8 g/dl (32-36) Platelet Count 259 K/uL (130-400) Mean Platelet Volume 9.3 fL (7.4-10.4) Neutrophils (%) (Auto) 85.5 % Lymphocytes (%) (Auto) 8.0 % Monocytes (%) (Auto) 3.4 % Eosinophils (%) (Auto) 0.0 % Basophils (%) (Auto) 0.1 % Neutrophils # (Auto) 12.68 K/uL (1.4-6.5) Lymphocytes # (Auto) 1.19 K/uL (1.2-3.4) Monocytes # (Auto) 0.51 K/uL (0.11-0.59) Eosinophils # (Auto) 0.00 K/uL (0-0.5) Basophils # (Auto) 0.01 K/uL (0-0.2) RDW Standard Deviation 42.3 fL (36.4-46.3) RDW Coefficient of Variation 13.2 % (11.5-14.5) Immature Granulocyte % (Auto) 3.0 % Immature Granulocyte # (Auto) 0.44 K/uL (0.00-0.02) Anion Gap 3.0 mmol/L (3-11) Est Creatinine Clear Calc Drug Dose 113.8 ml/min Estimated GFR () 93.9 Estimated GFR (Non- 81.0 BUN/Creatinine Ratio 19.7 (10-20) Calcium Level 8.7 mg/dl (8.5-10.1) Bedside Glucose 190 mg/dl (70-90) Assessment and Plan Acute exacerbation of COPD -Switching pt to PO steroids: Prednisone 60mg, with plan to slowly taper -Switched pt PO antibiotics: Cephalexin 500mg BID, Azithromycin 500mg -Duonebs Q6 hrs Q2 hr PRN -Dc'ed IVF Diarrhea -Ordered Cdiff stool toxin Steroid induced hyperglycemia -Pt started on Novolog and Lantus Back pain and Pleuritic chest pain -PRN tramadol 50mg q4 -PRN Acetaminophen 650mg q4 -PRN Ibuprofen 600mg QID DVT ppx -Levonox 40mg -SCD -TEDS Resident Physician Supervision Note: I was present with Dr. Peck during the history and exam. I discussed the case with the resident and agree with the findings and plan as documented in the note. Any exceptions or clarifications are listed here: 47-year-old female male admitted with acute exacerbation of chronic obstructive pulmonary disease. She appears much more comfortable this morning. She is crocheting in her bed, now on nasal cannula, without any shortness of breath or conversational dyspnea. Agree with stepdown therapy as noted above. We'll transfer to general medical floor. We'll reassess tomorrow in terms of discharge. Documented By: Pasquale Addison
[2017-06-22] MEDS: TRAMADOL HCL 50 MG TAB PO PRN (17:47)
[2017-06-22] MEDS ORDERED: MoRPHine SULFATE 4 MG/ML 1 ML CARP\\VIAL IV STA (19:32)
[2017-06-22] MEDS ORDERED: BENZONATATE 100MG CAP PO ONE (19:45)
[2017-06-22] MEDS: CEPHALEXIN MONOHYDRATE 500 MG CAP PO SCH (20:18)
[2017-06-22] MEDS: BENZONATATE 100MG CAP PO SCH (20:21)
[2017-06-22] MEDS: ENOXAPARIN 40 MG/0.4 ML SYR SC SCH (20:22)
[2017-06-22] MEDS: INSULIN GLARGINE SOLOSTAR 100 UNITS/ML 3 ML PEN SC SCH (20:30)
[2017-06-23] VITALS (12 sets, daily range): BP systolic 117–147; BP diastolic 68–84; PULSE 62–99; TEMP 36.4–36.5; O2SAT 90–98
[2017-06-23] MEDS: TRAMADOL HCL 50 MG TAB PO PRN ×4 (02:44→19:46)
[2017-06-23] MEDS ORDERED: NURSING VERBAL MED ORDER ONE ×2 (04:15→11:30)
[2017-06-23] MEDS ORDERED: MoRPHine SULFATE 4 MG/ML 1 ML CARP\\VIAL ONE (04:24)
[2017-06-23] MEDS: ALBUT/IPRATROP 3MG/0.5MG NEB 3 ML VIAL INH SCH ×5 (06:52→18:56)
[2017-06-23 07:03] LABS: ESTIMATED AVERAGE GLUCOSE 146 mg/dl; HA1C FLAG Normal (Normal)
[2017-06-23 07:49] LABS: HEMATOCRIT 42.3 % (37-47); MEAN CELL VOLUME 85.6 fL (80-100); MEAN CORPUSCULAR HEMOGLOBIN 28.3 pg (25-34); MEAN CORPUSCULAR HGB CONC 33.1 g/dl (32-36); MEAN PLATELET VOLUME 9.4 fL (7.4-10.4); PLATELET COUNT 240 K/uL (130-400); RED BLOOD COUNT 4.94 M/uL (4.2-5.4)
[2017-06-23 07:57] LABS: BUN/CREATININE RATIO 20.7 (10-20); CALCIUM 8.4 mg/dl (8.5-10.1); CREATININE 0.86 mg/dl (0.60-1.20); POTASSIUM 4.1 mmol/L (3.5-5.1)
[2017-06-23] MEDS: NICOTINE 21 MG/24 HR TDSY TD SCH (07:57)
[2017-06-23] MEDS: BENZONATATE 100MG CAP PO SCH ×3 (07:58→22:18)
[2017-06-23] MEDS: LORATADINE 10 MG TAB PO SCH (07:58)
[2017-06-23] MEDS: AMLODIPINE BESYLATE 5 MG TAB PO SCH (07:59)
[2017-06-23] MEDS: ATORVASTATIN 10 MG TAB PO SCH (07:59)
[2017-06-23] MEDS: FLUOXETINE HCL 20 MG CAP PO SCH (08:00)
[2017-06-23] MEDS: CEPHALEXIN MONOHYDRATE 500 MG CAP PO SCH ×2 (08:00→22:18)
[2017-06-23] MEDS: TOPIRAMATE 25 MG TAB PO SCH ×2 (08:01→22:18)
[2017-06-23] MEDS: IBUPROFEN 600 MG TAB PO SCH ×3 (08:01→22:17)
[2017-06-23] MEDS: AZITHROMYCIN 250 MG TAB PO SCH (08:01)
[2017-06-23] MEDS: ACETAMINOPHEN 325 MG TAB PO SCH ×4 (08:01→22:16)
[2017-06-23] MEDS: INSULIN ASPART 100 UNITS/ML 3 ML PEN SC SCH ×4 (08:10→22:23)
[2017-06-23] MEDS: INSULIN GLARGINE SOLOSTAR 100 UNITS/ML 3 ML PEN SC SCH ×2 (08:10→22:24)
[2017-06-23] MEDS: GUAIFENESIN 600 MG TABCR PO SCH ×2 (08:50→22:17)
--- NOTE | 2017-06-23 15:55 | Family Medicine Progress Note ---
Progress Note Date of Service Jun 23, 2017. Subjective Pt evaluation today including: conversation w/ patient, conversation w/ family , physical exam, chart review, lab review -Pt's presenting symptoms continue to improve. Pt denies SOB and is coughing less. -Pt does complain of chest pain and back with cough. Pain was bad last night. -Pt c/o subtle diarrhea with coughing -Pt denies fever, N/V, abdominal pain Constitutional: No fever, No chills, No sweats Respiratory: + cough, No sputum, No wheezing, No shortness of breath Cardiovascular: + chest pain Abdomen: No pain, No nausea, No vomiting, No diarrhea Female : No dysuria Medications Current Inpatient Medications Medications (Trade) Dose Ordered Sig/Alexis Route Start Time Stop Time Status Last Admin Dose Admin Enoxaparin Sodium (Lovenox Inj) 40 mg HS SC 06/20/17 21:00 07/20/17 20:59 06/22/17 20:22 40 MG Ondansetron HCl (Zofran Inj) 4 mg Q6H PRN IV 06/20/17 16:15 07/20/17 16:14 Amlodipine Besylate (Norvasc Tab) 5 mg DAILY PO 06/21/17 09:00 07/21/17 08:59 06/23/17 07:59 5 MG Atorvastatin Calcium (Lipitor Tab) 10 mg DAILY PO 06/21/17 09:00 07/21/17 08:59 06/23/17 07:59 10 MG Benzonatate (Tessalon Perles Cap) 100 mg Q6 PRN PO 06/20/17 16:15 07/20/17 16:14 Clonazepam (Klonopin Tab) 1 mg BID PRN PO 06/20/17 16:15 07/20/17 16:14 06/23/17 02:45 1 MG Fluoxetine HCl (Prozac Cap) 60 mg DAILY PO 06/21/17 09:00 07/21/17 08:59 06/23/17 08:00 60 MG Guaifenesin (Mucinex Contr Rel Tab) 1,200 mg Q12 PO 06/20/17 21:00 07/20/17 20:59 06/23/17 08:50 1,200 MG Loratadine (Claritin Tab) 10 mg DAILY PO 06/21/17 09:00 07/21/17 08:59 06/23/17 07:58 10 MG Topiramate (Topamax Tab) 50 mg BID PO 06/20/17 21:00 07/20/17 20:59 06/23/17 08:01 50 MG Albuterol/ Ipratropium (Duoneb) 3 ml QIDR INH 06/20/17 20:00 07/20/17 19:59 06/23/17 15:20 3 ML Acetaminophen (Tylenol Tab) 650 mg Q4H PRN PO 06/20/17 23:30 07/20/17 23:29 Nicotine (Nicoderm Cq 21MG Patch) 1 patch QAM TD 06/21/17 09:00 07/21/17 08:59 06/23/17 07:57 1 PATCH Miscellaneous (Remove Nicoderm Patch) 1 ea HS N/A 06/21/17 21:00 07/21/17 20:59 06/22/17 20:20 1 EA Buspirone HCl (Buspar Tab) 10 mg BID PO 06/21/17 21:00 07/21/17 20:59 06/23/17 07:59 10 MG Tramadol HCl (Ultram Tab) 50 mg Q4H PRN PO 06/22/17 09:30 07/22/17 09:29 06/23/17 11:05 50 MG Ibuprofen (Motrin Tab) 600 mg TID PO 06/22/17 14:00 07/22/17 13:59 06/23/17 14:04 600 MG Acetaminophen (Tylenol Tab) 650 mg Q4HWA PO 06/22/17 12:00 07/22/17 11:59 06/23/17 12:57 650 MG Insulin Glargine (Lantus Solostar Pen) 20 units Q12 SC 06/22/17 21:00 07/22/17 20:59 06/23/17 08:10 20 UNITS Insulin Aspart (novoLOG ASPART) SLIDING SCALE If C... ACHS SC 06/22/17 11:00 07/22/17 10:59 06/23/17 12:58 5 UNITS Glucose (Glucose 40% Gel) 15-30 GRAMS 15 GRAMS... UD PRN PO 06/22/17 09:45 07/22/17 09:44 Glucose (Glucose Chew Tab) 4-8 Tablets 4 Tabl... UD PRN PO 06/22/17 09:45 07/22/17 09:44 Dextrose (Dextrose 50% 50ML Syringe) 25-50ML OF 50% DW IV FOR... UD PRN IV 06/22/17 09:45 07/22/17 09:44 Glucagon (Glucagon Inj) 1 mg UD PRN SQ 06/22/17 09:45 07/22/17 09:44 Cephalexin Monohydrate (Keflex Cap) 500 mg BID PO 06/22/17 21:00 06/29/17 20:59 06/23/17 08:00 500 MG Azithromycin (Zithromax Tab) 500 mg QAM PO 06/23/17 09:00 06/30/17 08:59 06/23/17 08:01 500 MG Benzonatate (Tessalon Perles Cap) 100 mg TID PO 06/22/17 21:00 07/22/17 20:59 06/23/17 14:04 100 MG Prednisone (PredniSONE TAB) 60 mg DAILY PO 06/23/17 11:15 07/23/17 11:14 06/23/17 11:15 60 MG Objective Vital Signs Date Time Temp Pulse Resp B/P (MAP) Pulse Ox O2 Delivery O2 Flow Rate FiO2 06/23/17 15:20 99 16 92 Room Air 06/23/17 15:17 36.5 70 18 129/76 (93) 92 06/23/17 13:27 36.4 76 20 117/68 (84) 90 Nasal Cannula 4.0 06/23/17 12:19 36.5 89 20 121/80 (94) 94 Nasal Cannula 4.0 06/23/17 12:00 Nasal Cannula 4.0 06/23/17 11:11 71 16 98 Nasal Cannula 4.0 06/23/17 08:00 Nasal Cannula 4.0 06/23/17 07:59 36.4 64 20 147/81 (103) 92 Nasal Cannula 4.0 06/23/17 06:52 77 16 93 Nasal Cannula 4.0 06/23/17 04:24 36.5 62 16 129/82 (98) 97 4.0 06/23/17 04:00 Nasal Cannula 4.0 06/23/17 01:04 97 06/23/17 00:35 36.5 71 18 133/84 (100) 97 4.0 06/22/17 23:59 Nasal Cannula 4.0 06/22/17 20:00 Nasal Cannula 4.0 06/22/17 19:18 73 16 96 Nasal Cannula 4.0 06/22/17 19:07 36.5 64 22 157/84 (108) 93 Nasal Cannula 4.0 06/22/17 16:00 Nasal Cannula 4.0 06/22/17 15:53 85 16 97 Nasal Cannula 4.0 Physical Exam General Appearance: WD/WN, no apparent distress Neck: supple, no adenopathy Respiratory/Chest: lungs clear, normal breath sounds, no respiratory distress, no accessory muscle use Cardiovascular: regular rate, rhythm, no edema, no gallop Abdomen: normal bowel sounds, non tender Extremities: no pedal edema, no calf tenderness Skin: normal color, warm/dry, no rash Laboratory Results 06/23/17 05:17 06/23/17 05:17 Test 06/23/17 05:17 06/23/17 11:33 Red Blood Count 4.94 M/uL (4.2-5.4) Mean Corpuscular Volume 85.6 fL (80-100) Mean Corpuscular Hemoglobin 28.3 pg (25-34) Mean Corpuscular Hemoglobin Concent 33.1 g/dl (32-36) RDW Standard Deviation 42.0 fL (36.4-46.3) RDW Coefficient of Variation 13.5 % (11.5-14.5) Mean Platelet Volume 9.4 fL (7.4-10.4) Anion Gap 3.0 mmol/L (3-11) Est Creatinine Clear Calc Drug Dose 113.7 ml/min Estimated GFR () 93.9 Estimated GFR (Non- 81.0 BUN/Creatinine Ratio 20.7 (10-20) Estimated Average Glucose 146 mg/dl Hemoglobin A1c 6.7 % (4.5-5.6) Calcium Level 8.4 mg/dl (8.5-10.1) Bedside Glucose 96 mg/dl (70-90) Assessment and Plan Acute exacerbation of COPD -Continue prednisone 60mg day 2. Taper slowly: 60mg again tomorrow, 40mg on Monday. -Abx day 2: Cephalexin 500mg BID, Azithromycin 500mg -Duonebs Q6 hrs Q2 hr PRN Diarrhea -Awaiting Cdiff stool toxin Steroid induced hyperglycemia -Pt started on Novolog and Lantus Back pain and Pleuritic chest pain -Pt given morphine last night -PRN tramadol 50mg q4 -PRN Acetaminophen 650mg q4 -PRN Ibuprofen 600mg QID DVT ppx -Levonox 40mg -SCD -TEDS Resident Physician Supervision Note: I was present with the resident physician during the history and exam. I discussed the case with the resident and agree with the findings and plan as documented in the note. Any exceptions or clarifications are listed here: She looks improved today. With her recent readmission (secondary to discharge outside facility) I'm hesitant to discharge her today. Rather, I like to move her to a general medical floor and see how she does on oral steroids for another 24 hours. Consider discharge tomorrow if she continues to improve. Documented By: Pasquale Addison
--- NOTE | 2017-06-23 19:50 | Pulmonology Progress Note ---
Pulmonary Progress Note Date of Service Jun 23, 2017. Attending Subjective Patient seen and examined. She is feeling a little tired today. Still has a productive cough. Ambulating to bathroom. Now complaining of diarrhea. Objective VS reviewed. She on 4L NC. Gen: AAOx3, sitting in tripod position. Speaking in full sentence. No respiratory distress CVS: S1, S2, RRR Lungs: diminished breath sound bilaterally Abd: obese, NT, ND, BS+ Ext: no edema, no clubbing, no cyanosis b/l Skin: multiple tattoos Labs, imaging and medications reviewed Sputum culture-cancelled. Assessment & Plan Acute on chronic hypoxic and hypercapnic respiratory failure COPD exacerbation Tobacco use disorder Left upper lobe nodule Patient is clinically improving. Less dyspneic today. Leukocytosis most likely secondary to steroids. C.diff ordered an negative. C/w systemic corticosteroids, Now on prednisone taper c/w 7 day course of antibiotics. She completed 2/7 days. Continue with bronchodilators every 4-6 hours and when necessary. Continue with BiPAP overnight and when resting. c/w flutter valve and chest PT. C/w nicotine patch. The left upper lobe solitary pulmonary nodule was identified on initial chest x- ray. Due to her long history of smoking and family history of malignancy i.e. lung cancer she is at increased risk. She should have interval follow-up with a CT scan as an outpatient. She may also benefit from pulmonary rehabilitation program in the meantime. I appreciate the consult. Will sign off case. Please contact me if you have any other questions or concerns. Data Medications: Current Inpatient Medications Medications (Trade) Dose Ordered Sig/Alexis Route Start Time Stop Time Status Last Admin Dose Admin Enoxaparin Sodium (Lovenox Inj) 40 mg HS SC 06/20/17 21:00 07/20/17 20:59 06/22/17 20:22 40 MG Ondansetron HCl (Zofran Inj) 4 mg Q6H PRN IV 06/20/17 16:15 07/20/17 16:14 Amlodipine Besylate (Norvasc Tab) 5 mg DAILY PO 06/21/17 09:00 07/21/17 08:59 06/23/17 07:59 5 MG Atorvastatin Calcium (Lipitor Tab) 10 mg DAILY PO 06/21/17 09:00 07/21/17 08:59 06/23/17 07:59 10 MG Benzonatate (Tessalon Perles Cap) 100 mg Q6 PRN PO 06/20/17 16:15 07/20/17 16:14 Clonazepam (Klonopin Tab) 1 mg BID PRN PO 06/20/17 16:15 07/20/17 16:14 06/23/17 02:45 1 MG Fluoxetine HCl (Prozac Cap) 60 mg DAILY PO 06/21/17 09:00 07/21/17 08:59 06/23/17 08:00 60 MG Guaifenesin (Mucinex Contr Rel Tab) 1,200 mg Q12 PO 06/20/17 21:00 07/20/17 20:59 06/23/17 08:50 1,200 MG Loratadine (Claritin Tab) 10 mg DAILY PO 06/21/17 09:00 07/21/17 08:59 06/23/17 07:58 10 MG Topiramate (Topamax Tab) 50 mg BID PO 06/20/17 21:00 07/20/17 20:59 06/23/17 08:01 50 MG Albuterol/ Ipratropium (Duoneb) 3 ml QIDR INH 06/20/17 20:00 07/20/17 19:59 06/23/17 18:56 3 ML Acetaminophen (Tylenol Tab) 650 mg Q4H PRN PO 06/20/17 23:30 07/20/17 23:29 Nicotine (Nicoderm Cq 21MG Patch) 1 patch QAM TD 06/21/17 09:00 07/21/17 08:59 06/23/17 07:57 1 PATCH Miscellaneous (Remove Nicoderm Patch) 1 ea HS N/A 06/21/17 21:00 07/21/17 20:59 06/22/17 20:20 1 EA Buspirone HCl (Buspar Tab) 10 mg BID PO 06/21/17 21:00 07/21/17 20:59 06/23/17 07:59 10 MG Tramadol HCl (Ultram Tab) 50 mg Q4H PRN PO 06/22/17 09:30 07/22/17 09:29 06/23/17 15:54 50 MG Ibuprofen (Motrin Tab) 600 mg TID PO 06/22/17 14:00 9/16/17 13:59 06/23/17 14:04 600 MG Acetaminophen (Tylenol Tab) 650 mg Q4HWA PO 06/22/17 12:00 07/22/17 11:59 06/23/17 17:10 650 MG Insulin Glargine (Lantus Solostar Pen) 20 units Q12 SC 06/22/17 21:00 07/22/17 20:59 06/23/17 08:10 20 UNITS Insulin Aspart (novoLOG ASPART) SLIDING SCALE If C... ACHS SC 06/22/17 11:00 07/22/17 10:59 06/23/17 17:15 9 UNITS Glucose (Glucose 40% Gel) 15-30 GRAMS 15 GRAMS... UD PRN PO 06/22/17 09:45 07/22/17 09:44 Glucose (Glucose Chew Tab) 4-8 Tablets 4 Tabl... UD PRN PO 06/22/17 09:45 07/22/17 09:44 Dextrose (Dextrose 50% 50ML Syringe) 25-50ML OF 50% DW IV FOR... UD PRN IV 06/22/17 09:45 07/22/17 09:44 Glucagon (Glucagon Inj) 1 mg UD PRN SQ 06/22/17 09:45 07/22/17 09:44 Cephalexin Monohydrate (Keflex Cap) 500 mg BID PO 06/22/17 21:00 06/29/17 20:59 06/23/17 08:00 500 MG Azithromycin (Zithromax Tab) 500 mg QAM PO 06/23/17 09:00 06/30/17 08:59 06/23/17 08:01 500 MG Benzonatate (Tessalon Perles Cap) 100 mg TID PO 06/22/17 21:00 07/22/17 20:59 06/23/17 14:04 100 MG Prednisone (PredniSONE TAB) 60 mg DAILY PO 06/23/17 11:15 07/23/17 11:14 06/23/17 11:15 60 MG I & O: 24-Hour Column 06/24/17 08:00 Intake Total 1440 ml Output Total 350 ml Balance 1090 ml Vital Signs: Date Time Temp Pulse Resp B/P (MAP) Pulse Ox O2 Delivery O2 Flow Rate FiO2 8/18/17 18:56 88 16 96 Nasal Cannula 2.0 06/23/17 16:00 92 Room Air 4.0 06/23/17 15:20 99 16 92 Room Air 06/23/17 15:17 36.5 70 18 129/76 (93) 92 06/23/17 13:27 36.4 76 20 117/68 (84) 90 Nasal Cannula 4.0 06/23/17 12:19 36.5 89 20 121/80 (94) 94 Nasal Cannula 4.0 06/23/17 12:00 Nasal Cannula 4.0 06/23/17 11:11 71 16 98 Nasal Cannula 4.0 06/23/17 08:00 Nasal Cannula 4.0 06/23/17 07:59 36.4 64 20 147/81 (103) 92 Nasal Cannula 4.0 06/23/17 06:52 77 16 93 Nasal Cannula 4.0 06/23/17 04:24 36.5 62 16 129/82 (98) 97 4.0 06/23/17 04:00 Nasal Cannula 4.0 06/23/17 01:04 97 06/23/17 00:35 36.5 71 18 133/84 (100) 97 4.0 06/22/17 23:59 Nasal Cannula 4.0 06/22/17 20:00 Nasal Cannula 4.0 Laboratory Results: Last 24 Hours Test 06/22/17 20:25 06/23/17 05:17 06/23/17 11:33 06/23/17 16:35 Bedside Glucose 168 mg/dl 96 mg/dl 189 mg/dl White Blood Count 16.10 K/uL Red Blood Count 4.94 M/uL Hemoglobin 14.0 g/dL Hematocrit 42.3 % Mean Corpuscular Volume 85.6 fL Mean Corpuscular Hemoglobin 28.3 pg Mean Corpuscular Hemoglobin Concent 33.1 g/dl RDW Standard Deviation 42.0 fL RDW Coefficient of Variation 13.5 % Platelet Count 240 K/uL Mean Platelet Volume 9.4 fL Sodium Level 139 mmol/L Potassium Level 4.1 mmol/L Chloride Level 103 mmol/L Carbon Dioxide Level 33 mmol/L Anion Gap 3.0 mmol/L Blood Urea Nitrogen 18 mg/dl Creatinine 0.86 mg/dl Est Creatinine Clear Calc Drug Dose 113.7 ml/min Estimated GFR () 93.9 Estimated GFR (Non- 81.0 BUN/Creatinine Ratio 20.7 Random Glucose 128 mg/dl Estimated Average Glucose 146 mg/dl Hemoglobin A1c 6.7 % Calcium Level 8.4 mg/dl
[2017-06-23] MEDS: ENOXAPARIN 40 MG/0.4 ML SYR SC SCH (22:19)
[2017-06-23] MEDS ORDERED: DICLOFENAC SOD 1% GEL 100 GM TUBE EXT PRN (23:00)
[2017-06-24] VITALS (9 sets, daily range): BP systolic 131–169; BP diastolic 82–92; PULSE 64–81; TEMP 36.4–36.8; O2SAT 92–96
[2017-06-24] MEDS: KETOROLAC TROMETHAMINE 30 MG/ML VIAL IV PRN ×2 (00:12→07:47)
[2017-06-24] MEDS: TRAMADOL HCL 50 MG TAB PO PRN (05:43)
[2017-06-24] MEDS: ALBUT/IPRATROP 3MG/0.5MG NEB 3 ML VIAL INH SCH ×3 (07:05→14:36)
[2017-06-24 07:38] LABS: HEMATOCRIT 41.2 % (37-47); MEAN CELL VOLUME 84.8 fL (80-100); PLATELET COUNT 196 K/uL (130-400); RED BLOOD COUNT 4.86 M/uL (4.2-5.4); WHITE BLOOD COUNT 11.57 K/uL (4.8-10.8)
[2017-06-24 08:05] LABS: BLOOD UREA NITROGEN 17 mg/dl (7-18); BUN/CREATININE RATIO 21.3 (10-20); CALCIUM 8.2 mg/dl (8.5-10.1); CARBON DIOXIDE 34 mmol/L (21-32); CHLORIDE 103 mmol/L (98-107); CREATININE 0.79 mg/dl (0.60-1.20); GLUCOSE 73 mg/dl (70-99); SODIUM 140 mmol/L (136-145)
[2017-06-24] MEDS: INSULIN ASPART 100 UNITS/ML 3 ML PEN SC SCH ×2 (09:49→11:00)
[2017-06-24] MEDS: ACETAMINOPHEN 325 MG TAB PO SCH ×2 (09:50→14:12)
[2017-06-24] MEDS: CEPHALEXIN MONOHYDRATE 500 MG CAP PO SCH (09:52)
[2017-06-24] MEDS: LORATADINE 10 MG TAB PO SCH (09:52)
[2017-06-24] MEDS: INSULIN GLARGINE SOLOSTAR 100 UNITS/ML 3 ML PEN SC SCH (09:58)
[2017-06-24] MEDS: ATORVASTATIN 10 MG TAB PO SCH (10:01)
[2017-06-24] MEDS: GUAIFENESIN 600 MG TABCR PO SCH (10:02)
[2017-06-24] MEDS: AMLODIPINE BESYLATE 5 MG TAB PO SCH (10:02)
[2017-06-24] MEDS: FLUOXETINE HCL 20 MG CAP PO SCH (10:03)
[2017-06-24] MEDS: TOPIRAMATE 25 MG TAB PO SCH (10:04)
[2017-06-24] MEDS: BENZONATATE 100MG CAP PO SCH ×2 (10:04→14:09)
[2017-06-24] MEDS: AZITHROMYCIN 250 MG TAB PO SCH (10:05)
[2017-06-24] MEDS: NICOTINE 21 MG/24 HR TDSY TD SCH (10:06)
--- NOTE | 2017-06-24 13:53 | Discharge Instructions ---
Discharge Instructions Date of Service Jun 24, 2017. Admission Reason for Admission: Acute Respiratory Failure With Hypoxia And Hyperca Discharge Discharge Diagnosis / Problem: Acute on chronic hypoxic and hypercapnic respiratory failure Discharge Goals Goal(s): Decrease discomfort, Improve function Activity Recommendations Activity Limitations: resume your previous activity . Instructions / Follow-Up Instructions / Follow-Up New medications: - The prednisone dosing is on a taper (steady decrease). On day of discharge ( Monday), take 60 mg per day total. On Monday (Jun 25) begin taking 40 mg per day, for a total of three days. On Jun 28, take 20 mg per day for a total of three days. On Jul 01, take 10 mg per day for a total of three days. On Jul 04, take 5 mg (one-half of your 10 mg tablet) every day until you are seen by your stave saw operator. - Continue the cephalexin antibiotic for two more days (last dose on Jun 26). - You have a new Rx for nicoderm patches. Please follow the directions on the box. You can see your primary care provider for a refill before the six weeks is up. Follow up: - Make an appointment with your stave saw operator as soon as possible, particularly because you're still on the prednisone, as well as regarding your CT scan of your chest. - Follow up with your primary care provider as soon as possible as well for continuity of care. Talk with them about checking your blood sugars as well. Return to the nearest emergency department for any recurrence of difficulty breathing, temperature over 100.4, uncontrolled diarrhea or feeling of dehydration, new abdominal pain or blood in your stool, or with any acute concerns. Current Hospital Diet Patient's current hospital diet: Regular Diet Discharge Diet Recommended Diet: Regular Diet Pending Studies Studies pending at discharge: no Laboratory Results Hemoglobin A1c Test 06/23/17 05:17 Range/Units Estimated Average Glucose 146 mg/dl Hemoglobin A1c 6.7 H 4.5-5.6 % Medical Emergencies . Who to Call and When: Medical Emergencies: If at any time you feel your situation is an emergency, please call 911 immediately. . Non-Emergent Contact Non-Emergency issues call your: Primary Care Provider, Application Software Engineer . . "Provider Documentation" section prepared by Zaire Ravi. . Tax Manager Recommendations Tax Manager Recommendations: Application Software Engineer: - The left upper lobe solitary pulmonary nodule was identified on initial chest x-ray. Due to her long history of smoking and family history of malignancy i.e. lung cancer she is at increased risk. She should have interval follow-up with a CT scan as an outpatient. - She may also benefit from pulmonary rehabilitation program in the meantime. VTE Core Measure Inpt VTE Proph given/why not?: Enoxaparin (Lovenox)SQ, T.E.D. Gogo, SCD's
--- NOTE | 2017-06-24 14:15 | Discharge Summary ---
Discharge Summary Date of Service Jun 24, 2017. (Josh. Ravi M.D.) Discharge Summary Admission Date: Jun 20, 2017 at 16:26 Discharge Date: Jun 24, 2017 Discharge Disposition: Home Principal Diagnosis: Acute on chronic hypoxic and hypercapnic respiratory failure Problems/Secondary Diagnoses: COPD exacerbation Immunizations: Have You Had Influenza Vaccine: No History of Tetanus Vaccine?: No History of Pneumococcal: No History of Hepatitis B Vaccine: No Consultations: Pulmonology final rec's 19Aug while in hospital: - C/w systemic corticosteroids, Now on prednisone taper - c/w 7 day course of antibiotics. She completed 2/7 days. - Continue with bronchodilators every 4-6 hours and when necessary. - Continue with BiPAP overnight and when resting. - c/w flutter valve and chest PT. - C/w nicotine patch. - The left upper lobe solitary pulmonary nodule was identified on initial chest x-ray. Due to her long history of smoking and family history of malignancy i.e. lung cancer she is at increased risk. She should have interval follow-up with a CT scan as an outpatient. - She may also benefit from pulmonary rehabilitation program in the meantime (Josh. Ravi M.D.) Discharge Exam Pt comfortable this morning, says she's breathing much better, on same 4L oxygen via NC as at home, feels like her SOB is at her baseline now. Only other c/o is some mid-chest and back pain identical to when "I get COPD exacerbations", improved with PO pain meds. Pt says she'd prefer to be home and can control her pain there just as well as here in the hospital. Has some ongoing loose stools but denies any abd pain, blood, vomiting, or change in PO intake. No other acute c/o. Wishes to go home. Physical Exam: General Appearance: WD/WN, no apparent distress Respiratory/Chest: + decreased breath sounds (minimally in bilateral lower smith. No wheezing, rhonchi, rales appreciated throughout) Cardiovascular: regular rate, rhythm, no edema Abdomen / GI: normal bowel sounds, non tender, soft Extremities: normal inspection, no calf tenderness, no pedal edema, normal range of motion Neurologic/Psychiatric: alert, normal mood/affect, oriented x 3 (Josh. Ravi M.D.) Hospital Course H&P on admit: 47 yo female with PMHx significant for COPD presents to the ED with acute SOB. -Interviewed patient while on Bipap. Pt says family -Pt was recently hospitalized for acute exacerbation of COPD last to Monday at [facility] -Pt said that her last episode was triggered by a URI. Last week she says she experienced fevers and cold like symptoms -This morning she reports acute SOB similar to episodes in the past. -Pt reports a 7 year history of COPD. She states that her and her PCP have tried to preempt attacks by taking prophylaxis abx when when begins to experience cold symptoms. -Pt has smoked 2 PPD for 34 years. Pt still smokes. -She also reports a constant chest pain, tender to touch, worse with coughing, nothing seems to make it better and its the same with activity and rest. Pt gets some relief with Tylenol. -Pt denies abdominal pain, N/V/D. Patient denies problems with urinations. At time of d/c: ## Acute COPD exacerbation - Much improved from arrival. Weaned off BiPAP. Back on 4L NC (home dose). - CXR 16Aug: IMPRESSION: Mild emphysema with no active disease in the chest. - Pulm consult, last note 18Aug C/w systemic corticosteroids, Now on prednisone taper c/w 7 day course of antibiotics. She completed 2/7 days. Continue with bronchodilators every 4-6 hours and when necessary. Continue with BiPAP overnight and when resting. c/w flutter valve and chest PT. C/w nicotine patch. The left upper lobe solitary pulmonary nodule was identified on initial chest x- ray. Due to her long history of smoking and family history of malignancy i.e. lung cancer she is at increased risk. She should have interval follow-up with a CT scan as an outpatient. She may also benefit from pulmonary rehabilitation program in the meantime. - Plan for prednisone taper. Already had 10 days of azithromycin (continuation from prior recent hospitalization). Total five days of keflex here, so will keep on for additional two days. - Pt says she's quit smoking. Rx'ed nicoderm patch x 6 weeks, can continue via PCM prn. ## Diarrhea - Ongoing. C diff negative. No abd pain, noted blood, or emesis. Likely due to recent abx. Can f/u as outpt. ## Hyperglycemia - Glc trend: [id number]. Was on novolog and lantus here. HbA1C was 6.7. Suspect elevations related to steroid use. No new rx from here. Should f/u with PCM. ## Back and pleuritic chest pain - Per pt, standard for her during COPD exacerbation. Did not suspect cardiac cause. Pain best controlled with morphine, but stopped that, transitioned to voltarin + toradol + tylenol. Total Time Spent: Greater than 30 minutes This includes examination of the patient, discharge planning, medication reconciliation, and communication with other providers. (Josh. Ravi M.D.) Resident Physician Supervision Note: I was present with Dr. Ravi during the history and exam. I discussed the case with the resident and agree with the findings and plan as documented in the note. Any exceptions or clarifications are listed here: 47-year-old female admitted with COPD exacerbation. This admission with subsequent to a recent discharge from an outside facility 1 day prior to her admission here. The patient has been on oral prednisone and oral antibiotics for the last 24 hours and she is continued to improve. She feels that she is at her baseline in terms of respiratory status. It is noted that she is on chronic steroids at home as well has home oxygen. Patient was able to relate around the room and into the bathroom today without any increased respiratory difficulties. The patient desires discharge and I feel based on examination today and her trend towards improvement of the last 48 hours that she is safe for discharge. She understands the need to quit smoking - she will be discharged on a NicoDerm patch. She will follow-up with her primary care physician at the [facility] and also with her electrician research at [facility]. Documented By: Pasquale Addison Total Time Spent: Less than 30 minutes (Pasquale Addison,D.O.) Discharge Instructions Please refer to the electronic Patient Visit Report (Discharge Instructions) for additional information. (Josh. Ravi M.D.) Follow-Up PCM and Pulmonology (Josh. Ravi M.D.) Additional Copies To Camron Cuenca PA-C Resident Tracking Resident Involvement: Resident Care Provided (d/c summary) Care Provided: Adult [facility] (Josh. Ravi M.D.)
[2017-06-24] MEDS ORDERED: PRED10TA PO (14:33)
[2017-06-24] MEDS ORDERED: KFL500 PO (14:34)
[2017-06-24] MEDS ORDERED: NICO21DI35 TD (14:34)
[2017-08-17] MEDS ORDERED: [UNRECOGNIZED DRUG - OTHER] INH (08:07)
[2017-08-17] MEDS ORDERED: FURO-85 PO (08:44)
== END 2017-06-24 16:30 | disposition home or self-care (01) | DRG 189 ==
LOC: C.EDB 10:48 → C.2E 16:26 → ENRESERV 17:41 → C.MS2W 06-23 13:19
PROVIDERS: ADMIT Family Medicine; ATTEND Family Medicine
DX: J96.21 Acute and chronic respiratory failure with hypoxia (principal); J44.1 Chronic obstructive pulmonary disease with (acute) exacerbation; E87.2 Acidosis; J96.22 Acute and chronic respiratory failure with hypercapnia; Z99.81 Dependence on supplemental oxygen; F17.200 Nicotine dependence, unspecified, uncomplicated; I10 Essential (primary) hypertension; E66.01 Morbid (severe) obesity due to excess calories; R91.1 Solitary pulmonary nodule; Z68.39 Body mass index [BMI] 39.0-39.9, adult

== ENCOUNTER → 2017-08-17 | Day surgery (SDC) | payer OTHER ==
[~2017-08-17] VITALS: Ht 172.7 cm; Wt 123.0 kg
[2017-08-17] VITALS (23 sets, daily range): BP systolic 103–175; BP diastolic 58–104; PULSE 84–113; TEMP 36.7; O2SAT 86–100; Ht 172.7 cm; Wt 123.0 kg
[~2017-08-17] MED LIST changes: -ACET-1256 PO; +ALBU18002 INH; -ALBUAER2 INH; +AMLO-110 PO; +ATOR10TA88 PO; -ATV/1 PO; +BENZ100C84 PO; +BSP/10 PO; -BUSP15TA70 PO; +CLON1TAB3 PO; +CLR10 PO; +ENAL1TAB31 PO; +FENTANYL CITRATE 100 MCG 2 ML CARP IV ONE; +FENTANYL CITRATE INJ 50 MCG/1 ML 2 ML VIAL IV SCH; +FLUO20CA34 PO; -FLUO20CA35 PO; -FORM12CA2 INH; +FURO-85 PO; +GUAI1TAB75 PO; +IPRASOL4 INH; +KFL500 PO; +LEVALBUTEROL 1.25MG/0.5ML NEB INH SCH; +LEVALBUTEROL 1.25MG/3ML NEB INH ONE; +LORA-741 PO; -LPT10 PO; +MIDAZOLAM HCL 5 MG/ML 1 ML VIAL IV SCH; +MIDAZOLAM HCL 5 MG/ML 2ML VIAL IV ONE; +MOME100A INH; -NCDT21 TD; +NICO21DI35 TD; -NRV5 PO; +NURSING VERBAL MED ORDER ONE; -OXGN; +PRED10TA PO; -PRED5PAK3 PO; +PRVIN525X INH; +SPRIN/30 INH; -TIOTCAP INH; -VST10 PO; +[UNRECOGNIZED DRUG - OTHER] INH
--- NOTE | 2017-08-17 06:32 | History and Physical ---
History & Physical Date Aug 17, 2017. Chief Complaint 47-year-old female with severe obstructive ventilatory disease here for bronchoscopic evaluation of continued dyspnea on exertion and mucus plugging History of Present Illness The patient is a 47 year old female with complaints of severe obstructive ventilatory disease here for bronchoscopic evaluation of continued dyspnea on exertion and mucus plugging 47-year-old female with severe obstructive ventilatory disease FEV1: 35% with recent emergency room visit and follow up with provider Rolan Cuenca 2016. The patient is having increasing difficulty with bronchiectasis and mucous plug expectoration. Patient has undergone continuous medical regimen and his been initiated on vibration best at this time. Active Problems 1. Acute bronchitis 2. Anxiety/ Generalized anxiety disorder 3. Apnea, not elsewhere classified 4. Arthritis 5. Chest pain on breathing 6. Chronic bronchitis 7. Chronic obstructive pulmonary disease (FEV1: 35%) 8. Daytime hypersomnolence 9. Depression 10. Fatigue 11. Fibromyalgia 12. Hypertension 13. Hypoxia 14. Joint pain, knee 15. Lower back pain 16. Morbid obesity 17. Snoring 18. Thoracic back pain 19. Tobacco use Surgical History 1. History of Section 2. History of Cholecystectomy 3. History of Hernia Repair 4. History of Hysterectomy 5. History of Tubal Ligation Family History 1. Family history of Breast Cancer 2. Family history of Diabetes Mellitus 3. Family history of Lung Cancer Social History Current smoker Denied: History of Drug Use Denied: History of Home Environment Domestic Violence Denied: History of Housing Without Smoke Detectors Marital History - Single Tobacco use Denied: History of Uses Safety Equipment - Seatbelts Current Meds 1. ProAir HFA 108 (90 Base) MCG/ACT Inhalation Aerosol Solution; INHALE 2 PUFFS 2. Doxycycline Hyclate 100 MG Oral Capsule; TAKE 1 CAPSULE EVERY 12 HOURS DAILY; 3. PredniSONE 10 MG Oral Tablet; Start by taking 4 pills daily for 2 days and then decrease 4. Utibron Neohaler 27.5-15.6 MCG Inhalation Capsule; 1 Capsule via inhaler bid; 5. Ipratropium-Albuterol 0.5-2.5 (3) MG/3ML Inhalation Solution; USE 1 UNIT DOSE IN NEBULIZER 4 TIMES DAILY 6. PROzac 20 MG Oral Capsule; TAKE 3 CAPSULES AT BEDTIME; 7. Enalapril Maleate 20 MG Oral Tablet; TAKE 1 TABLET DAILY DIRECTED 8. AmLODIPine Besylate 5 MG Oral Tablet; TAKE 1 TABLET DAILY; 9. Atorvastatin Calcium 10 MG Oral Tablet; TAKE 1 TABLET DAILY DIRECTED; 10. BuSpar 10 MG TABS; Take 1 tablet twice daily; 11. KlonoPIN 1 MG Oral Tablet; TAKE 1 TABLET 3 TIMES DAILY NEEDED; 12. Lasix 20 MG Oral Tablet; TAKE 1 TABLET DAILY NEEDED; 13. Oxygen; 3 LPM via nasal cannula 29/05; 14. Topamax 50 MG Oral Tablet; TAKE 1 TABLET TWICE DAILY 15. Tylenol Arthritis Pain 8 Hour 650 MG TBCR; Takes 2-3 tabs as needed Allergies 1. No Known Drug Allergies Past Medical/Surgical History Medical Problems: (1) Acute respiratory failure with hypoxia and hypercapnia Additional History Hepatic Disease: No Endocrine Disorder: No Kidney Disease: No Hypertension: Yes Heart Disease: No Bleeding Tendencies: No Infectious Diseases: No Other: Obstructive sleep apnea COPD with an FEV1 of 35% Allergies Coded Allergies: No Known Allergies (Unverified , 07/03/13) Home Medications Scheduled Amlodipine (Norvasc), 5 MG PO DAILY Atorvastatin (Lipitor), 10 MG PO DAILY Buspirone HCl (Buspirone HCl), 10 MG PO BID Cephalexin Monohydrate (Cephalexin), 500 MG PO BID Enalapril Maleate (Vasotec), 20 MG PO DAILY Fluoxetine Hcl (Prozac), 60 MG PO DAILY Guaifenesin La (Guaifenesin Er), 1,200 MG PO Q12H Loratadine (Claritin), 10 MG PO DAILY Mometasone Furoate-Formoterol (Dulera 100/5 Mcg), 1 AER INH DAILY Nicotine (Nicoderm Cq 21MG Patch), 1 PATCH TD DAILY Prednisone (Prednisone), 10 MG PO UD Tiotropium Andes (Spiriva Handihaler), 1 CAP INH BID Topiramate (Topamax), 50 MG PO BID Scheduled PRN Albuterol Sulf (Albuterol Sulfate), 1 VIAL INH Q4 PRN for SOB/Wheezing Albuterol Sulfate (Proair Respiclick), 1 PUFF INH DAILY PRN for Shortness of Breath Benzonatate (Tessalon Perles), 100 MG PO Q6 PRN for Cough Clonazepam (Klonopin), 1 MG PO BID PRN for Anxiety/Agitation Ipratropium-Albuterol (Duoneb), 1 TREATMENT INH Q4H PRN for SOB/Wheezing Lorazepam (Ativan), 0.5 MG PO DAILY PRN for Anxiety Physical Examination Skin: warm/dry, no rash Eyes: normal inspection, EOMI, sclerae normal ENT: normal ENT inspection, pharynx normal Head: normocephalic, atraumatic Neck: supple, no adenopathy, trachea midline Respiratory/Chest: lungs clear, normal breath sounds, no respiratory distress Cardiovascular: regular rate, rhythm, no edema, no murmur Abdomen / GI: normal bowel sounds, non tender Back: normal inspection Extremities: normal inspection, normal range of motion Neurologic/Psych: no motor/sensory deficits, alert, normal reflexes, oriented x 3 Diagnosis Severe sleep apnea with diffuse mucus plugs in recurrent cough ASA Classification: ASA Class III Plan of Treatment Bronchoscopy with conscious sedation bronchial lavage
--- NOTE | 2017-08-17 08:17 | History & Physical Bridge Note ---
H&P Re-Evaluation Bridge Note: I have examined the patient, reviewed the History & Physical and in the interval since the performance of the History & Physical I have noted the following changes of clinical significance: No changes noted
--- NOTE | 2017-08-17 08:18 | Procedure Note ---
Pre-Mod Sedation Assessment General Date of Moderate Sedation: Aug 17, 2017. Review Cardiovascular: regular rate, rhythm, no edema, no gallop, no JVD Abdomen: normal bowel sounds, non tender, soft, no organomegaly, + pertinent finding (obeise) Lungs: + decreased breath sounds Pre-Sedation Airway Assessment Oral Cavity: Dentures Able to Visualize Vocal Cords: Yes Short Thick Neck: Yes Hx of Sleep Apnea: Yes Smoking Status: Current Every Day Smoker Mallampati Classification: Class III ASA Classification: Class IV Procedure Planning Contraindications-for Mod Sed: None Yes Notes The planned sedation has been discussed with the patient and consent obtained. I have identified the patient, determined the appropriateness of sedation and have assessed the patient immediately prior to the procedure. All medicine(s) and interventions are by my order.
--- NOTE | 2017-08-17 09:32 | Procedure Note ---
Post-Moderate Sedation Plan General Date of Moderate Sedation Aug 17, 2017. Vital Signs: Vital Signs Past 12 Hours Date Time Temp Pulse Resp B/P (MAP) Pulse Ox O2 Delivery O2 Flow Rate FiO2 08/17/17 09:25 94 24 142/76 91 Mask 12.0 08/17/17 09:20 98 24 125/94 95 Mask 8.0 08/17/17 09:15 93 20 114/91 96 Mask 8.0 08/17/17 09:10 87 20 135/73 99 Mask 8.0 08/17/17 09:05 86 20 136/75 99 Mask 8.0 08/17/17 09:00 88 20 139/80 100 Mask 8.0 08/17/17 08:58 84 20 144/104 100 Mask 8.0 08/17/17 08:48 36.7 87 20 152/86 95 Nasal Cannula 4.0 08/17/17 07:50 36.7 87 20 152/86 (108) 95 Nasal Cannula 4 Review - Discharge Plan Post Moderate Sedation Plan: On clinical assessment, the patient appears to have tolerated the conscious sedation without complications. Patient is recovering as anticipated. Patient will continue to be monitored by nursing and may be discharged when conscious sedation discharge criteria are met.
--- NOTE | 2017-08-17 09:34 | Bronchoscopy Procedure Note ---
Bronchoscopy Procedure Note Procedure: Bronchoscopy, conscious sedation, bronchial lavage lingula Consent: Obtained through the patient placed into the chart Pre-procedural diagnosis: Chronic cough Post-procedural diagnosis: Chronic cough Start time: 909 End time: 920 Total time: 11minutes Analgesia: 2% liquid lidocaine: Via nebulizer 4% gel lidocaine: Via right naris 2% liquid lidocaine: Via bronchoscopy Sedation: Versed IV: 3mg Fentanyl IV: 75 g Procedure: The Olympus video bronchoscope was used for this procedure and passed down through the right naris Right naris/posterior naris/posterior oropharynx: Notable redundant tissue along the oropharynx Glottis: Anatomically within normal limits Vocal cords: Proper abduction and abduction, anatomically within normal limits Subglottis/trachea/Carleen: Anatomically within normal limits Right bronchial tree: Right mainstem bronchus: Anatomically within normal limits Right upper lobe: Anatomically within normal limits Bronchus intermedius: Anatomically within normal limits Right middle lobe: Anatomically within normal limits Right lower lobe: Anatomically within normal limits Findings: No significant findings noted Left bronchial tree: Left mainstem bronchus: Anatomically within normal limits Left upper lobe: Anatomically within normal limits Lingula: Anatomically within normal limits Left lower lobe: Anatomically within normal limits Findings: No significant findings noted Bronchial alveolar lavage: Lingula EBL: None Complications: None Follow-up: In the [facility]
--- NOTE | 2017-08-17 11:13 | Discharge Instructions ---
Discharge Instructions Date of Service Aug 17, 2017. Admission Reason for Admission: Bronchectasis, Cough, Copd, Shortness Of Breath Discharge Discharge Diagnosis / Problem: chronic dyspnea with associated cough Discharge Goals Goal(s): Diagnostic testing Activity Recommendations Activity Limitations: resume your previous activity . Instructions / Follow-Up Instructions / Follow-Up Follow-up with provider Rolan Cuenca in the month any pulmonary clinic's Current Hospital Diet Patient's current hospital diet: Discharge Diet Recommended Diet: Regular Diet Procedures Procedures Performed: Bronchoscopy, bronchial lavage and conscious sedation Pending Studies Studies pending at discharge: no Laboratory Results Hemoglobin A1c Test 06/23/17 05:17 Range/Units Estimated Average Glucose 146 mg/dl Hemoglobin A1c 6.7 H 4.5-5.6 % Medical Emergencies . Who to Call and When: Medical Emergencies: If at any time you feel your situation is an emergency, please call 911 immediately. . Non-Emergent Contact Non-Emergency issues call your: Film Editor Supervisor . . "Provider Documentation" section prepared by Darrius Ibrahim. . VTE Core Measure Inpt VTE Proph given/why not?: Treatment not indicated
== END | disposition home or self-care (01) ==
LOC: C.ACU 07:16
PROVIDERS: ATTEND Internal Medicine Critical Care Medicine
DX: R05 Cough (principal); J44.9 Chronic obstructive pulmonary disease, unspecified; F32.9 Major depressive disorder, single episode, unspecified; I10 Essential (primary) hypertension; E66.01 Morbid (severe) obesity due to excess calories; F17.200 Nicotine dependence, unspecified, uncomplicated; Z98.51 Tubal ligation status; Z90.49 Acquired absence of other specified parts of digestive tract; Z90.710 Acquired absence of both cervix and uterus; Z80.3 Family history of malignant neoplasm of breast; Z83.3 Family history of diabetes mellitus; Z80.1 Family history of malignant neoplasm of trachea, bronchus and lung